=== PATIENT | male | born 1940 | race Caucasian/White ===

== ENCOUNTER → 2016-05-07 | Outpatient (CLI) | payer MEDICARE, OTHER ==
[2016-05-07 08:44] LABS: ALANINE AMINOTRANSFERASE 57 U/L (21-72); ALBUMIN 3.7 g/dL (3.5-5.0); ALKALINE PHOSPHATASE 150 U/L (38-126); ANION GAP 12 (5-19); ASPARTATE AMINO TRANSFERASE 77 U/L (17-59); BILIRUBIN,TOTAL 0.7 mg/dL (0.2-1.3); BLOOD UREA NITROGEN 13 mg/dL (7-20); CALCIUM 8.8 mg/dL (8.4-10.2); CARBON DIOXIDE 27 mmol/L (22-30); CHLORIDE 97 mmol/L (98-107); CHOLESTEROL 140.35 mg/dL (0-200); CREATININE RESULT 1.15 mg/dL (0.52-1.25); Direct HDL 72 mg/dL (>40); GLUCOSE 98 mg/dL (75-110); POTASSIUM 4.1 mmol/L (3.6-5.0); SODIUM 136.4 mmol/L (137-145); TOTAL PROTEIN 7.5 g/dL (6.3-8.2); TRIGLYCERIDES 111 mg/dL (<150)
[2016-05-07 08:55] LABS: DIRECT LDL 42 mg/dL (<100)
== END ==
LOC: LAB 08:03
PROVIDERS: ATTEND Internal Medicine
DX: E78.4 Other hyperlipidemia (principal); I12.9 Hypertensive chronic kidney disease with stage 1 through stage 4 chronic kidney disease, or unspecified chronic kidney disease; N18.9 Chronic kidney disease, unspecified; I34.0 Nonrheumatic mitral (valve) insufficiency; J44.9 Chronic obstructive pulmonary disease, unspecified; R09.89 Other specified symptoms and signs involving the circulatory and respiratory systems; R01.1 Cardiac murmur, unspecified; Z79.899 Other long term (current) drug therapy
CPT/HCPCS: 36415; 80053; 80061

== ENCOUNTER → 2016-05-28 | Outpatient (CLI) | payer MEDICARE, OTHER | LOC: RAD 07:10 | PROVIDERS: ATTEND Nurse Practitioner Adult Health | DX: R06.00 Dyspnea, unspecified (principal) | CPT/HCPCS: 71250 ==

== ENCOUNTER → 2016-07-15 | Outpatient (CLI) | payer MEDICARE, OTHER | LOC: RAD 15:42 | PROVIDERS: ATTEND Nurse Practitioner Adult Health | DX: R91.1 Solitary pulmonary nodule (principal) | CPT/HCPCS: 78814; A9552 ==

== ENCOUNTER → 2016-07-19 | Outpatient (CLI) | payer MEDICARE, OTHER | LOC: WI 10:31 | PROVIDERS: ATTEND Physician Assistant | DX: Z87.310 Personal history of (healed) osteoporosis fracture (principal) | CPT/HCPCS: 77080 ==

== ENCOUNTER → 2016-08-06 | Outpatient (CLI) | payer MEDICARE, OTHER ==
[2016-08-06 08:19] LABS: ALANINE AMINOTRANSFERASE 34 U/L (21-72); ALBUMIN 4.6 g/dL (3.5-5.0); ALKALINE PHOSPHATASE 86 U/L (38-126); ANION GAP 15 (5-19); ASPARTATE AMINO TRANSFERASE 44 U/L (17-59); BILIRUBIN,DIRECT 0.4 mg/dL (0.0-0.4); BILIRUBIN,TOTAL 0.8 mg/dL (0.2-1.3); BLOOD UREA NITROGEN 14 mg/dL (7-20); CALCIUM 9.4 mg/dL (8.4-10.2); CARBON DIOXIDE 24 mmol/L (22-30); CHLORIDE 105 mmol/L (98-107); CHOLESTEROL 172.41 mg/dL (0-200); CREATININE RESULT 1.26 mg/dL (0.52-1.25); Direct HDL 107 mg/dL (>40); GLUCOSE 115 mg/dL (75-110); SODIUM 143.7 mmol/L (137-145); TOTAL PROTEIN 7.9 g/dL (6.3-8.2); TRIGLYCERIDES 51 mg/dL (<150)
[2016-08-06 08:31] LABS: DIRECT LDL 52 mg/dL (<100)
== END ==
LOC: LAB 07:36
PROVIDERS: ATTEND Internal Medicine
DX: E78.4 Other hyperlipidemia (principal); I12.9 Hypertensive chronic kidney disease with stage 1 through stage 4 chronic kidney disease, or unspecified chronic kidney disease; N18.9 Chronic kidney disease, unspecified; Z79.899 Other long term (current) drug therapy; I34.0 Nonrheumatic mitral (valve) insufficiency; J44.9 Chronic obstructive pulmonary disease, unspecified; R01.1 Cardiac murmur, unspecified; R09.89 Other specified symptoms and signs involving the circulatory and respiratory systems
CPT/HCPCS: 36415; 80053; 80061

== ENCOUNTER → 2016-10-16 | Outpatient (CLI) | payer MEDICARE, OTHER ==
[2016-10-16 11:04] LABS: ALANINE AMINOTRANSFERASE 36 U/L (21-72); ALBUMIN 4.5 g/dL (3.5-5.0); ALKALINE PHOSPHATASE 92 U/L (38-126); ANION GAP 13 (5-19); ASPARTATE AMINO TRANSFERASE 35 U/L (17-59); BILIRUBIN,DIRECT 0.4 mg/dL (0.0-0.4); BILIRUBIN,TOTAL 0.7 mg/dL (0.2-1.3); BLOOD UREA NITROGEN 13 mg/dL (7-20); CALCIUM 9.1 mg/dL (8.4-10.2); CARBON DIOXIDE 24 mmol/L (22-30); CHLORIDE 106 mmol/L (98-107); CHOLESTEROL 168.06 mg/dL (0-200); CREATININE RESULT 1.01 mg/dL (0.52-1.25); GLUCOSE 113 mg/dL (75-110); POTASSIUM 3.7 mmol/L (3.6-5.0); SODIUM 143.2 mmol/L (137-145); TOTAL PROTEIN 7.8 g/dL (6.3-8.2); TRIGLYCERIDES 42 mg/dL (<150)
[2016-10-16 11:15] LABS: Direct HDL 115 mg/dL (>40)
[2016-10-16 11:18] LABS: DIRECT LDL 44 mg/dL (<100)
== END ==
LOC: LAB 10:21
PROVIDERS: ATTEND Internal Medicine
DX: E78.4 Other hyperlipidemia (principal); I34.0 Nonrheumatic mitral (valve) insufficiency; I12.9 Hypertensive chronic kidney disease with stage 1 through stage 4 chronic kidney disease, or unspecified chronic kidney disease; N18.9 Chronic kidney disease, unspecified; J44.9 Chronic obstructive pulmonary disease, unspecified; R01.1 Cardiac murmur, unspecified; R09.89 Other specified symptoms and signs involving the circulatory and respiratory systems; Z79.899 Other long term (current) drug therapy
CPT/HCPCS: 36415; 80053; 80061

== ENCOUNTER → 2016-12-14 | Outpatient (CLI) | payer MEDICARE, OTHER ==
[2016-12-14 07:58] LABS: APPEARANCE,URINE CLEAR; BILIRUBIN,URINE NEGATIVE (NEGATIVE); GLUCOSE, URINE NEGATIVE (NEGATIVE); KETONES,URINE NEGATIVE (NEGATIVE); LEUKOCYTE ESTERASE,URINE NEGATIVE (NEGATIVE); NITRITE,URINE NEGATIVE (NEGATIVE); PROTEIN,URINE NEGATIVE (NEGATIVE); URINE SPECIFIC GRAVITY 1.004; UROBILINOGEN,URINE NEGATIVE mg/dL (<2.0)
[2016-12-14 08:17] LABS: ABSOLUTE BASOPHILS # (AUTO) 0.1 10^3/uL (0.0-0.2); ABSOLUTE LYMPHOCYTES (AUTO) 1.4 10^3/uL (0.5-4.7); ABSOLUTE MONOCYTES (AUTO) 0.4 10^3/uL (0.1-1.4); ABSOLUTE NEUT (AUTO) 3.6 10^3/uL (1.7-8.2); HEMATOCRIT 38.9 % (37.9-51.0); HEMOGLOBIN 13.5 g/dL (13.5-17.0); HGB HCT DIFFERENCE 1.6; LYMPHOCYTES % (AUTO) 25.7 % (13-45); MEAN CORPUSCULAR HEMOGLOBIN 33.1 pg (27.0-33.4); MEAN CORPUSCULAR HGB CONC 34.8 g/dL (32.0-36.0); MEAN CORPUSCULAR VOLUME 95 fl (80-97); MONOCYTES % (AUTO) 6.8 % (3-13); RED BLOOD COUNT 4.09 10^6/uL (4.35-5.55); RED CELL DISTRIBUTION WIDTH 14.2 % (11.5-14.0); SEGMENTED NEUTROPHILS % (AUTO) 65.5 % (42-78); WHITE BLOOD COUNT 5.5 10^3/uL (4.0-10.5)
[2016-12-14 08:20] LABS: ANION GAP 13 (5-19); BLOOD UREA NITROGEN 12 mg/dL (7-20); CALCIUM 9.3 mg/dL (8.4-10.2); CARBON DIOXIDE 25 mmol/L (22-30); CHLORIDE 103 mmol/L (98-107); CREATININE RESULT 0.96 mg/dL (0.52-1.25); GLUCOSE 124 mg/dL (75-110); POTASSIUM 3.4 mmol/L (3.6-5.0); SODIUM 141.1 mmol/L (137-145)
== END ==
LOC: LAB 07:42
PROVIDERS: ATTEND Internal Medicine Nephrology
DX: N18.2 Chronic kidney disease, stage 2 (mild) (principal); R80.9 Proteinuria, unspecified; I12.9 Hypertensive chronic kidney disease with stage 1 through stage 4 chronic kidney disease, or unspecified chronic kidney disease; M10.00 Idiopathic gout, unspecified site
CPT/HCPCS: 36415; 80048; 81001; 85025

== ENCOUNTER → 2016-12-19 | Outpatient (CLI) | payer MEDICARE, OTHER ==
[2016-12-19 11:27] LABS: ABSOLUTE BASOPHILS # (AUTO) 0.1 10^3/uL (0.0-0.2); ABSOLUTE LYMPHOCYTES (AUTO) 1.5 10^3/uL (0.5-4.7); ABSOLUTE MONOCYTES (AUTO) 0.3 10^3/uL (0.1-1.4); BASOPHILS % (AUTO) 2.1 % (0-2); EOSINOPHILS % (AUTO) 0.4 % (0-6); HEMATOCRIT 40.4 % (37.9-51.0); HEMOGLOBIN 13.7 g/dL (13.5-17.0); HGB HCT DIFFERENCE 0.7; LYMPHOCYTES % (AUTO) 30.9 % (13-45); MEAN CORPUSCULAR HEMOGLOBIN 32.9 pg (27.0-33.4); MEAN CORPUSCULAR VOLUME 97 fl (80-97); MONOCYTES % (AUTO) 6.4 % (3-13); RED BLOOD COUNT 4.17 10^6/uL (4.35-5.55); RED CELL DISTRIBUTION WIDTH 13.9 % (11.5-14.0); SEGMENTED NEUTROPHILS % (AUTO) 60.2 % (42-78); WHITE BLOOD COUNT 4.9 10^3/uL (4.0-10.5)
[2016-12-19 11:50] LABS: ALANINE AMINOTRANSFERASE 47 U/L (21-72); ALBUMIN 4.6 g/dL (3.5-5.0); ALKALINE PHOSPHATASE 94 U/L (38-126); AMYLASE 116 U/L (30-110); ANION GAP 14 (5-19); ASPARTATE AMINO TRANSFERASE 51 U/L (17-59); BILIRUBIN,DIRECT 0.4 mg/dL (0.0-0.4); BILIRUBIN,TOTAL 0.8 mg/dL (0.2-1.3); BLOOD UREA NITROGEN 12 mg/dL (7-20); CALCIUM 9.4 mg/dL (8.4-10.2); CARBON DIOXIDE 28 mmol/L (22-30); CHLORIDE 104 mmol/L (98-107); CREATININE RESULT 1.01 mg/dL (0.52-1.25); GLUCOSE 101 mg/dL (75-110); LIPASE 76.8 U/L (23-300); POTASSIUM 3.8 mmol/L (3.6-5.0); SODIUM 145.5 mmol/L (137-145); TOTAL PROTEIN 7.5 g/dL (6.3-8.2)
== END ==
LOC: LAB 11:06
PROVIDERS: ATTEND Specialist
DX: R10.9 Unspecified abdominal pain (principal); D50.9 Iron deficiency anemia, unspecified; K76.0 Fatty (change of) liver, not elsewhere classified
CPT/HCPCS: 36415; 80053; 82150; 83690; 85025

== ENCOUNTER → 2017-05-06 | Outpatient (CLI) | payer MEDICARE, OTHER ==
[2017-05-06 09:02] LABS: ALANINE AMINOTRANSFERASE 42 U/L (21-72); ALBUMIN 4.6 g/dL (3.5-5.0); ALKALINE PHOSPHATASE 82 U/L (38-126); ANION GAP 10 (5-19); ASPARTATE AMINO TRANSFERASE 59 U/L (17-59); BILIRUBIN,DIRECT 0.4 mg/dL (0.0-0.4); BILIRUBIN,TOTAL 0.5 mg/dL (0.2-1.3); BLOOD UREA NITROGEN 14 mg/dL (7-20); CALCIUM 9.6 mg/dL (8.4-10.2); CARBON DIOXIDE 28 mmol/L (22-30); CHLORIDE 105 mmol/L (98-107); GLUCOSE 105 mg/dL (75-110); POTASSIUM 4.5 mmol/L (3.6-5.0); TOTAL PROTEIN 7.5 g/dL (6.3-8.2); TRIGLYCERIDES 37 mg/dL (<150)
[2017-05-06 09:13] LABS: DIRECT LDL 35 mg/dL (<100)
== END ==
LOC: LAB 08:24
PROVIDERS: ATTEND Internal Medicine
DX: E78.4 Other hyperlipidemia (principal); I12.9 Hypertensive chronic kidney disease with stage 1 through stage 4 chronic kidney disease, or unspecified chronic kidney disease; N18.9 Chronic kidney disease, unspecified; R01.1 Cardiac murmur, unspecified; R09.89 Other specified symptoms and signs involving the circulatory and respiratory systems; J44.9 Chronic obstructive pulmonary disease, unspecified; I34.0 Nonrheumatic mitral (valve) insufficiency; Z79.899 Other long term (current) drug therapy
CPT/HCPCS: 36415; 80053; 80061

== ENCOUNTER 2017-05-10 07:41 | Day surgery (SDC) | payer MEDICARE, OTHER ==
--- NOTE | 2017-05-10 08:53 | Operative Report ---
Operative Report DATE OF SURGERY: 05/10/17 Operative Report: The risks benefits and alternatives of the procedure explained to the patient in detail and informed consent is obtained.A GIF Olympus video scope was inserted into the patient's mouth and hypopharynx, the esophagus is identified intubated and insufflated ,the scope was then advanced through the esophagus stomach and duodenum, retroflexion maneuver is done, the esophagus stomach and first and second portions of the duodenum examined PREOPERATIVE DIAGNOSIS: Dyspepsia POSTOPERATIVE DIAGNOSIS: Gastritis status post biopsy rule out Helicobacter pylori OPERATION: EGD with biopsy SURGEON: CLEMENTINA MIKE ANESTHESIA: Other - No sedation provided. Patient chose to do the procedure unsedated. TISSUE REMOVED OR ALTERED: Gastric mucosal specimens obtained to rule out Helicobacter pylori COMPLICATIONS: None. ESTIMATED BLOOD LOSS: None. INTRAOPERATIVE FINDINGS: As noted above. PROCEDURE: Patient tolerated the procedure well. No immediate postprocedure complications are noted. Patient discharged in good condition. Discharge date 05-10-17. Discharge diet: Regular. Discharge activity: Regular. 2-3 week follow-up to discuss findings. We will wait on pathology. Patient is instructed to call the office or proceed to the emergency room should there be any further problems or questions.
[2017-05-10 08:58] VITALS: BP 144/80
== END 2017-05-10 08:55 | disposition home or self-care (01) ==
LOC: END 07:41
PROVIDERS: ATTEND Internal Medicine Gastroenterology
PROC: 0DB68ZX Excision of Stomach, Via Natural or Artificial Opening Endoscopic, Diagnostic (ICD-10-PCS; principal; 2017-05-10 08:00)
DX: K29.50 Unspecified chronic gastritis without bleeding (principal); I10 Essential (primary) hypertension; E78.00 Pure hypercholesterolemia, unspecified; K76.0 Fatty (change of) liver, not elsewhere classified; J43.9 Emphysema, unspecified
CPT/HCPCS: 43239; 88305; 88342

== ENCOUNTER → 2017-06-21 | Outpatient (CLI) | payer MEDICARE, OTHER ==
[2017-06-21 08:02] LABS: HEMATOCRIT 39.3 % (37.9-51.0); HEMOGLOBIN 13.6 g/dL (13.5-17.0); MEAN CORPUSCULAR HEMOGLOBIN 33.3 pg (27.0-33.4); MEAN CORPUSCULAR HGB CONC 34.5 g/dL (32.0-36.0); MEAN CORPUSCULAR VOLUME 97 fl (80-97); PLATELET COUNT 234 10^3/uL (150-450); RED BLOOD COUNT 4.07 10^6/uL (4.35-5.55); RED CELL DISTRIBUTION WIDTH 14.6 % (11.5-14.0); WHITE BLOOD COUNT 4.8 10^3/uL (4.0-10.5)
[2017-06-21 08:23] LABS: ANION GAP 12 (5-19); BLOOD UREA NITROGEN 12 mg/dL (7-20); CALCIUM 9.5 mg/dL (8.4-10.2); CARBON DIOXIDE 27 mmol/L (22-30); CHLORIDE 104 mmol/L (98-107); GLUCOSE 104 mg/dL (75-110); SODIUM 142.8 mmol/L (137-145)
== END ==
LOC: LAB 07:36
PROVIDERS: ATTEND Internal Medicine Nephrology
DX: I12.9 Hypertensive chronic kidney disease with stage 1 through stage 4 chronic kidney disease, or unspecified chronic kidney disease (principal); N18.2 Chronic kidney disease, stage 2 (mild); R80.9 Proteinuria, unspecified
CPT/HCPCS: 36415; 80048; 85027

== ENCOUNTER → 2017-12-16 | Outpatient (CLI) | payer MEDICARE, OTHER ==
[2017-12-16 08:52] LABS: HEMATOCRIT 38.1 % (37.9-51.0); HEMOGLOBIN 13.4 g/dL (13.5-17.0); MEAN CORPUSCULAR HEMOGLOBIN 33.7 pg (27.0-33.4); MEAN CORPUSCULAR HGB CONC 35.2 g/dL (32.0-36.0); MEAN CORPUSCULAR VOLUME 96 fl (80-97); PLATELET COUNT 279 10^3/uL (150-450); RED BLOOD COUNT 3.98 10^6/uL (4.35-5.55); RED CELL DISTRIBUTION WIDTH 13.6 % (11.5-14.0); WHITE BLOOD COUNT 9.2 10^3/uL (4.0-10.5)
[2017-12-16 08:56] LABS: ANION GAP 15 (5-19); BLOOD UREA NITROGEN 10 mg/dL (7-20); CALCIUM 9.8 mg/dL (8.4-10.2); CARBON DIOXIDE 21 mmol/L (22-30); CHLORIDE 97 mmol/L (98-107); GLUCOSE 120 mg/dL (75-110); POTASSIUM 4.5 mmol/L (3.6-5.0); SODIUM 133.2 mmol/L (137-145)
== END ==
LOC: LAB 08:27
PROVIDERS: ATTEND Internal Medicine Nephrology
DX: I12.9 Hypertensive chronic kidney disease with stage 1 through stage 4 chronic kidney disease, or unspecified chronic kidney disease (principal); N18.2 Chronic kidney disease, stage 2 (mild); R80.9 Proteinuria, unspecified
CPT/HCPCS: 36415; 80048; 83735; 85027

== ENCOUNTER → 2018-01-20 | Outpatient (CLI) | payer MEDICARE, OTHER ==
[2018-01-20 10:03] LABS: CHOLESTEROL 161.36 mg/dL (0-200); TRIGLYCERIDES 64 mg/dL (<150)
[2018-01-20 11:19] LABS: DIRECT LDL < 30 mg/dL (<100)
== END ==
LOC: LAB 08:20
PROVIDERS: ATTEND Internal Medicine
DX: E78.49 Other hyperlipidemia (principal); I34.0 Nonrheumatic mitral (valve) insufficiency; I12.9 Hypertensive chronic kidney disease with stage 1 through stage 4 chronic kidney disease, or unspecified chronic kidney disease; N18.9 Chronic kidney disease, unspecified; Z79.899 Other long term (current) drug therapy; R01.1 Cardiac murmur, unspecified; R09.89 Other specified symptoms and signs involving the circulatory and respiratory systems
CPT/HCPCS: 36415; 80061

== ENCOUNTER 2018-01-27 09:22 | Emergency (ER) | payer MEDICARE, OTHER ==
[2018-01-27] MEDS ORDERED: DIPH/PERTUSS(ACELL)/TETANUS VAC/PF 0.5 ML SYR (>=10YO) IM ONE (09:58)
--- NOTE | 2018-01-27 10:01 | ER Document Report ---
ED Fall - General Chief Complaint: Fall Stated Complaint: FALL,LEG PAIN Time Seen by Provider: 01/27/18 09:43 TRAVEL OUTSIDE OF THE [place] IN LAST 30 DAYS: No - HPI Notes: Patient is a 77-year-old male that presents to the emergency department for chief complaint of head injury. Patient states just prior to arrival in the emergency room he was walking up a ramp and fell backwards. He did hit his head but denies any loss of consciousness. Patient states initially he had a headache but that is now resolved. He denies any vision changes numbness or weakness. He does take a baby aspirin daily but denies any other anticoagulation. He denies any pain in his hips or lower extremities. He denies other injury with the fall. He denies any neck pain. Past Medical History: COPD, hypertension, hyperlipidemia, peptic ulcer disease, hepatitis B Past Surgical History: reviewed in chart Social History: Daily tobacco. Denies alcohol and drug use Family History: Reviewed and noncontributory for presenting illness Allergies: Reviewed, see documented allergy list. REVIEW OF SYSTEMS: CONSTITUTIONAL : No fever No chills No diaphoresis No recent illness EENT: No vision changes No congestion No sore throat CARDIOVASCULAR: No chest pain No palpitations RESPIRATORY: No shortness of breath No cough No difficulty breathing GASTROINTESTINAL: No abdominal pain No nausea No vomiting No diarrhea GENITOURINARY: No dysuria No hematuria No difficulty urinating MUSCULOSKELETAL: No back pain No leg pain No arm pain SKIN: No rashes Scalp laceration LYMPHATIC: No swollen, enlarged glands. NEUROLOGICAL: No lightheadedness headache No weakness No paresthesias PSYCHIATRIC: No anxiety No depression PHYSICAL EXAMINATION: Vital signs reviewed, nursing noted reviewed. GENERAL: Well-appearing, well-nourished and in no acute distress. HEAD: Occipital ecchymosis and abrasion. EYES: Eyes appear normal, extraocular movements intact, sclera anicteric, conjunctiva are normal. ENT: nares patent, oropharynx clear without exudates. Moist mucous membranes. Facial bone tenderness or laxity NECK: Normal range of motion, supple without lymphadenopathy midline spinal tenderness LUNGS: Breath sounds clear to auscultation bilaterally and equal. No wheezes rales or rhonchi. HEART: Regular rate and rhythm without murmurs ABDOMEN: Soft, nontender, normoactive bowel sounds. No rebound, guarding, or rigidity. No masses appreciated. EXTREMITIES: Nontender, good range of motion, no pitting or edema. NEUROLOGICAL: No focal neurological deficits. Moves all extremities spontaneously Motor and sensory grossly intact on exam. PSYCH: Normal mood, normal affect. SKIN: Warm, Dry, normal turgor, occipital abrasion and ecchymosis with no active bleeding - Related data Allergies/Adverse Reactions: No Known Allergies Allergy (Verified 05/10/17 07:26) Past Medical History - Social History Smoking Status: Current Every Day Smoker Family History: Hypertension Patient has suicidal ideation: No Patient has homicidal ideation: No - Past Medical History Cardiac Medical History: Reports: Hx Congestive Heart Failure, Hx Coronary Artery Disease, Hx Hypercholesterolemia, Hx Hypertension Denies: Hx Heart Attack Pulmonary Medical History: Reports: Hx Asthma, Hx COPD Denies: Hx Bronchitis, Hx Pneumonia, Hx Tuberculosis Neurological Medical History: Denies: Hx Cerebrovascular Accident, Hx Seizures Renal/ Medical History: Reports: Hx Renal Insufficiency. Denies: Hx Peritoneal Dialysis GI Medical History: Reports: Hx Ulcer - perforated ulcer when he was 24. Denies : Hx Hepatitis, Hx Hiatal Hernia Musculoskeletal Medical History: Reports Hx Arthritis Psychiatric Medical History: Denies: Hx Depression Infectious Medical History: Denies: Hx Hepatitis Past Surgical History: Reports: Hx Bowel Surgery, Hx Orthopedic Surgery - shoulder. Denies: Hx Open Heart Surgery, Hx Pacemaker - Immunizations Hx Diphtheria, Pertussis, Tetanus Vaccination: Yes Hx Pneumococcal Vaccination: 04/08/14 Review of Systems - Review of Systems Notes: Dictated Physical Exam - Vital signs Vitals: Temp Pulse Resp BP Pulse Ox 97.6 F 88 18 125/71 100 01/27/18 09:43 01/27/18 09:43 01/27/18 09:43 01/27/18 09:43 01/27/18 09:43 - Notes Notes: Dictated Course - Re-evaluation Re-evalutation: 01/27/18 10:01 Vitals reviewed. Nursing notes reviewed. Patient's tetanus vaccine was updated. 01/27/18 10:58 CT brain and cervical spine show no acute injury. Patient is still not wanting pain medication. He was counseled on closed head injury and precautions to return to the emergency room. He was stable at discharge. - Vital Signs Vital signs: Temp Pulse Resp BP Pulse Ox 97.6 F 88 18 125/71 100 01/27/18 09:43 01/27/18 09:43 01/27/18 09:43 01/27/18 09:43 01/27/18 09:43 Discharge - Discharge Clinical Impression: Abrasion of scalp, initial encounter Closed head injury Qualifiers: Encounter type: initial encounter Qualified Code(s): S09.90XA - Unspecified injury of head, initial encounter Condition: Stable Disposition: HOME, SELF-CARE Instructions: Head Injury Precautions ([facility]) Additional Instructions: Please return to the emergency department if you have any worsening, or concern of your symptoms. Please return to the emergency department if you develop chest pain, difficulty breathing, severe abdominal pain, or ongoing vomiting. Please follow-up with your primary care physician in 2-3 days and any other recommended physicians. If prescribed, take all medications as directed. If you have any questions or concerns do not hesitate to return the emergency department for evaluation. [] Referrals: Noam MURRY MD [Primary Care Provider] - Follow up in 1 week
--- NOTE | 2018-01-27 10:51 | RADIOLOGY REPORT (SQ) ---
EXAM DESCRIPTION: CT HEAD WITHOUT COMPLETED DATE/TIME: 01/27/2018 10:41 am REASON FOR STUDY: trauma COMPARISON: None. TECHNIQUE: Axial images acquired through the brain without intravenous contrast. Images reviewed wi th bone, brain and subdural windows. Additional sagittal and coronal reconstructions were generated. Images stored on PACS. All CT scanners at this facility use dose modulation, iterative reconstruction, and/or weight based d osing when appropriate to reduce radiation dose to as low as reasonably achievable (ALARA). [facility]: Dose Right [facility]: CareDose [facility]: Dose Right [facility]: Teradose 4D [facility]: [employer] RADIATION DOSE: CT Rad equipment meets quality standard of care and radiation dose reduction techniq ues were employed. CTDIvol: 53.2 mGy. DLP: 991 mGy-cm.mGy. LIMITATIONS: None. FINDINGS: VENTRICLES: Prominent. CEREBRUM: No masses. No hemorrhage. No midline shift. Areas of low density in the white matter mos t likely due to chronic micro-vascular ischemic change. No evidence for acute infarction. CEREBELLUM: No masses. No hemorrhage. No alteration of density. No evidence for acute infarction. EXTRAAXIAL SPACES: Age-related involutional change. No fluid collections. No masses. ORBITS AND GLOBE: No intra- or extraconal masses. Normal contour of globe without masses. CALVARIUM: No fracture. PARANASAL SINUSES: No fluid or mucosal thickening. SOFT TISSUES: No mass or hematoma. OTHER: No other significant finding. IMPRESSION: CHRONIC CHANGES OF ATROPHY AND MICROVASCULAR ISCHEMIA. NO ACUTE PROCESS. EVIDENCE OF ACUTE STROKE: NO. TECHNICAL DOCUMENTATION: JOB ID: [id number] Quality ID # [id number]: Final reports with documentation of one or more dose reduction techniques (e.g., Au tomated exposure control, adjustment of the mA and/or kV according to patient size, use of iterative reconstruction technique) 2010 [employer]- All Rights Reserved Reading location - IP/workstation name: [email or web address]
--- NOTE | 2018-01-27 10:56 | RADIOLOGY REPORT (SQ) ---
EXAM DESCRIPTION: CT CERVICAL SPINE WITHOUT COMPLETED DATE/TIME: 01/27/2018 10:41 am REASON FOR STUDY: trauma COMPARISON: 02/14/2012 TECHNIQUE: Axial images acquired through the cervical spine without intravenous contrast. Images re viewed with lung, soft tissue and bone windows. Reconstructed coronal and sagittal MPR images review ed. Images stored on PACS. All CT scanners at this facility use dose modulation, iterative reconstruction, and/or weight based d osing when appropriate to reduce radiation dose to as low as reasonably achievable (ALARA). [facility]: Dose Right [facility]: CareDose [facility]: Dose Right [facility]: Teradose 4D [facility]: [employer] RADIATION DOSE: CT Rad equipment meets quality standard of care and radiation dose reduction techniq ues were employed. CTDIvol: 16.9 mGy. DLP: 351 mGy-cm. mGy. LIMITATIONS: None. FINDINGS: ALIGNMENT: Anatomic. MINERALIZATION: Normal. VERTEBRAL BODIES: No fractures or dislocation. DISCS: Multilevel disc space narrowing with osteophytes. FACETS, LATERAL MASSES, POSTERIOR ELEMENTS: Anatomic variant incomplete right C5 superior facet. HARDWARE: None in the spine. VISUALIZED RIBS: No fractures. LUNG APICES AND SOFT TISSUES: No significant or acute findings. OTHER: No other significant finding. IMPRESSION: CHRONIC DEGENERATIVE CHANGES. NO ACUTE FINDINGS. TECHNICAL DOCUMENTATION: JOB ID: [id number] Quality ID # [id number]: Final reports with documentation of one or more dose reduction techniques (e.g., Au tomated exposure control, adjustment of the mA and/or kV according to patient size, use of iterative reconstruction technique) 2010 [employer]- All Rights Reserved Reading location - IP/workstation name: [email or web address]
[2018-01-27 11:32] VITALS: BP 123/70
== END 2018-01-27 11:19 | disposition home or self-care (01) ==
LOC: ER 09:22
DX: S00.01XA Abrasion of scalp, initial encounter (principal); S09.90XA Unspecified injury of head, initial encounter; W01.0XXA Fall on same level from slipping, tripping and stumbling without subsequent striking against object, initial encounter; Z23 Encounter for immunization; J44.9 Chronic obstructive pulmonary disease, unspecified; E78.2 Mixed hyperlipidemia; F17.200 Nicotine dependence, unspecified, uncomplicated; I50.9 Heart failure, unspecified; I11.0 Hypertensive heart disease with heart failure
CPT/HCPCS: 99284; 90471; 70450; 72125; 90715; L0120

== ENCOUNTER 2018-01-30 21:02 | Inpatient (IN) | payer MEDICARE, OTHER ==
[2018-01-30 22:14] LABS: ABSOLUTE LYMPHOCYTES (AUTO) 0.7 10^3/uL (0.5-4.7); ABSOLUTE MONOCYTES (AUTO) 0.9 10^3/uL (0.1-1.4); ABSOLUTE NEUT (AUTO) 10.3 10^3/uL (1.7-8.2); BASOPHILS % (AUTO) 0.1 % (0-2); HEMATOCRIT 41.9 % (37.9-51.0); HEMOGLOBIN 14.5 g/dL (13.5-17.0); LYMPHOCYTES % (AUTO) 5.7 % (13-45); MEAN CORPUSCULAR HEMOGLOBIN 34.4 pg (27.0-33.4); MEAN CORPUSCULAR HGB CONC 34.7 g/dL (32.0-36.0); MEAN CORPUSCULAR VOLUME 99 fl (80-97); MONOCYTES % (AUTO) 7.3 % (3-13); PLATELET COUNT 336 10^3/uL (150-450); RED BLOOD COUNT 4.23 10^6/uL (4.35-5.55); RED CELL DISTRIBUTION WIDTH 13.8 % (11.5-14.0); SEGMENTED NEUTROPHILS % (AUTO) 86.9 % (42-78); TOTAL CELLS COUNTED % (AUTO) 100 %; WHITE BLOOD COUNT 11.9 10^3/uL (4.0-10.5)
[2018-01-30 22:17] LABS: ALANINE AMINOTRANSFERASE 907 U/L (21-72); ALBUMIN 4.5 g/dL (3.5-5.0); ALKALINE PHOSPHATASE 158 U/L (38-126); ANION GAP 18 (5-19); BILIRUBIN,DIRECT 1.5 mg/dL (0.0-0.4); BILIRUBIN,TOTAL 2.6 mg/dL (0.2-1.3); BLOOD UREA NITROGEN 57 mg/dL (7-20); CALCIUM 9.6 mg/dL (8.4-10.2); CARBON DIOXIDE 30 mmol/L (22-30); CHLORIDE 87 mmol/L (98-107); CREATINE KINASE 222 U/L (55-170); GLUCOSE 133 mg/dL (75-110); POTASSIUM 3.9 mmol/L (3.6-5.0); SODIUM 135.4 mmol/L (137-145); TOTAL PROTEIN 7.8 g/dL (6.3-8.2)
[2018-01-30 22:29] LABS: ASPARTATE AMINO TRANSFERASE 1275 U/L (17-59)
--- NOTE | 2018-01-30 22:45 | RADIOLOGY REPORT (SQ) ---
EXAM DESCRIPTION: XR CHEST 1 VIEW COMPLETED DATE/TME: 01/30/2018 22:01 CLINICAL HISTORY: 77 years, Male, sob, cough COMPARISON: None. EXAM DESCRIPTION: CLINICAL HISTORY: sob, cough COMPARISON: None. FINDINGS: Two views of the chest are submitted. Cardiac silhouette appears normal. No focal parenchymal or pleural disease. No acute bony abnormality. There is no significant pulmonary vascular engorgement. IMPRESSION: No evidence of acute cardiopulmonary disease. NUMBER OF VIEWS: TECHNIQUE: LIMITATIONS: None. FINDINGS: IMPRESSION: 2010 [facility] [employer]- All Rights Reserved
[2018-01-30] MEDS ORDERED: NORMAL SALINE 1000 ML 1,000 ML IV ONE (22:53)
--- NOTE | 2018-01-30 22:55 | ER Document Report ---
ED General - General Chief Complaint: General Weakness Stated Complaint: GENERAL WEAKNESS Time Seen by Provider: 01/30/18 21:15 Cannot obtain history due to: Other - Very poor historian Notes: Patient is a 77-year-old male with a past medical history of hypertension, hyperlipidemia, chronic pain, COPD with current tobacco abuse who presents after having multiple falls. The patient is a very difficult historian, repeatedly tries to minimize symptoms and seems quite hesitant to provide details of his history. He does however state that he has had 2 episodes today in which he "lost his balance". He is unable or unwilling to tell me more about the details of what exactly happened other than that he ended up on the floor and did not hit his head. He states that his family convinced him to come to the hospital today. He was seen in the hospital several days ago for a fall at that time as well and had normal CT of the head and cervical spine. He states that he has at least a 2-year history of frequent falls but that his falls and weakness have become much more prominent in the past 3-4 days. He has not seen his primary doctor regarding these concerns. He denies any current chest pain, shortness of breath, focal weakness or numbness. Nothing improves or worsens his symptoms. TRAVEL OUTSIDE OF THE [place] IN LAST 30 DAYS: No - Related Data Allergies/Adverse Reactions: No Known Allergies Allergy (Verified 05/10/17 07:26) Past Medical History - General Information source: Patient - Social History Smoking Status: Current Every Day Smoker Frequency of alcohol use: None Drug Abuse: None Lives with: Family Family History: Hypertension - Past Medical History Cardiac Medical History: Reports: Hx Congestive Heart Failure, Hx Coronary Artery Disease, Hx Hypercholesterolemia, Hx Hypertension Denies: Hx Heart Attack Pulmonary Medical History: Reports: Hx Asthma, Hx COPD Denies: Hx Bronchitis, Hx Pneumonia, Hx Tuberculosis Neurological Medical History: Denies: Hx Cerebrovascular Accident, Hx Seizures Renal/ Medical History: Reports: Hx Renal Insufficiency. Denies: Hx Peritoneal Dialysis GI Medical History: Reports: Hx Ulcer - perforated ulcer when he was 24. Denies : Hx Hepatitis, Hx Hiatal Hernia Musculoskeletal Medical History: Reports Hx Arthritis Psychiatric Medical History: Denies: Hx Depression Infectious Medical History: Denies: Hx Hepatitis Past Surgical History: Reports: Hx Bowel Surgery, Hx Orthopedic Surgery - shoulder. Denies: Hx Open Heart Surgery, Hx Pacemaker - Immunizations Hx Diphtheria, Pertussis, Tetanus Vaccination: Yes Hx Pneumococcal Vaccination: 04/08/14 Review of Systems - Review of Systems Notes: Constitutional: Negative for fever. HENT: Negative for sore throat. Eyes: Negative for visual changes. Cardiovascular: Negative for chest pain. Respiratory: Negative for shortness of breath. Gastrointestinal: Negative for abdominal pain, vomiting or diarrhea. Genitourinary: Negative for dysuria. Musculoskeletal: Negative for back pain. Skin: Negative for rash. Neurological: Negative for headaches, weakness or numbness. Positive for frequent falls 10 point ROS negative except as marked above and in HPI. Physical Exam - Vital signs Vitals: Temp Resp Pulse Ox 97.6 F 19 92 01/30/18 21:09 01/30/18 21:09 01/30/18 21:09 Interpretation: Tachycardic Notes: PHYSICAL EXAMINATION: GENERAL: Appears older than stated age, somewhat cachectic HEAD: Atraumatic, normocephalic. EYES: Pupils equal round and reactive to light, extraocular movements intact, sclera anicteric, conjunctiva are normal. ENT: nares patent, oropharynx clear without exudates. Moderately dry mucous membranes. NECK: Normal range of motion, supple without lymphadenopathy LUNGS: Breath sounds clear to auscultation bilaterally and equal. No wheezes rales or rhonchi. HEART: Irregular tachycardia without murmurs ABDOMEN: Soft, nontender, normoactive bowel sounds. No guarding, no rebound. No masses appreciated. EXTREMITIES: Normal range of motion, no pitting or edema. No cyanosis. NEUROLOGICAL: Face symmetric. Tongue protrudes midline. Extraocular motions intact. Pupils are 2 mm and equally reactive. Normal speech. 5 out of 5 strength in both the distal and proximal upper and lower extremities bilaterally. Sensation is grossly intact throughout. Finger to nose testing normal. Pronator drift normal. PSYCH: Normal mood, normal affect. SKIN: Warm, Dry, normal turgor, diffuse ecchymosis over the bilateral upper extremities, back, legs Course - Re-evaluation Re-evalutation: 01/30/18 22:53 Presentation of an overall cachectic, chronically ill-appearing male who is tachycardic, apparently has been hypotensive in the field, diffuse ecchymosis which she states has been ongoing for several years. He minimizes his symptoms recurrently, continues to state that he is just tripping and falling but this is not consistent with his clinical history of presentation. It sounds that the patient is likely having recurrent near syncopal episodes. He did sustain head trauma several days ago but did not hit his head again today. Patient's neurologic exam is without any focal neurologic deficits, and normal cerebellar testing. Gait deferred at this point given the recurrent nature of his falls. He is noted to be tachycardic with a sinus arrhythmia. Patient's laboratories are notable for an elevated troponin of 0.091 although patient denies any chest pain or anginal equivalents. His LFTs are grossly abnormal, his renal function is likewise extremely poor and was within acceptable limits within the past 6 weeks. I am concerned of the possibility of metastatic malignancy particularly given that the patient is an active smoker, has had an 8 pound weight loss in the past [address] of the chest abdomen pelvis without contrast due to his renal function to further assess. 01/31/18 03:16 CT scan of the chest abdomen pelvis does reveal a right sided lung mass worrisome for possible malignancy. No masses noted in the abdomen. No obvious source of his LFT derangements based on CT imaging. I have discussed with the hospitalist Dr. Odonnell who has accepted the patient for admission. - Vital Signs Vital signs: Temp Pulse Resp BP Pulse Ox 97.5 F 16 142/98 H 100 01/31/18 02:33 01/31/18 02:33 01/31/18 02:33 01/31/18 02:33 - Laboratory Result Diagrams: 01/30/18 21:19 01/30/18 21:19 Laboratory results interpreted by me: 01/30/18 01/30/18 01/30/18 21:19 21:19 21:19 WBC 11.9 H RBC 4.23 L MCV 99 H MCH 34.4 H Seg Neutrophils % 86.9 H Lymphocytes % 5.7 L Absolute Neutrophils 10.3 H Sodium 135.4 L Chloride 87 L BUN 57 H Creatinine 2.85 H Est GFR ( Amer) 26 L Est GFR (Non-Af Amer) 22 L Glucose 133 H Phosphorus 4.8 H Total Bilirubin 2.6 H Direct Bilirubin 1.5 H AST 1275 H ALT 907 H Alkaline Phosphatase 158 H Creatine Kinase 222 H Lipase 367.5 H Acetaminophen < 10 L - Diagnostic Test Radiology reviewed: Reports reviewed Discharge - Discharge Clinical Impression: Acute kidney injury, Acute hepatitis, Frequent falls, Lung nodule Failure to thrive Qualifiers: Failure to thrive age range: in adult Qualified Code(s): R62.7 - Adult failure to thrive Condition: Fair Disposition: ADMITTED INPATIENT Admitting Provider: Hospitalist Unit Admitted: [facility]
--- NOTE | 2018-01-30 23:53 | RADIOLOGY REPORT (SQ) ---
CT CHEST, ABDOMEN, AND PELVIS HISTORY: Weight loss. Abnormal liver function tests. Evaluate for malignancy. COMPARISON: None. TECHNIQUE: CT scan of the chest, abdomen, and pelvis without contrast. This exam was performed according to our departmental dose-optimization program, which includes automated exposure control, adjustment of the mA and/or kV according to patient size and/or use of iterative reconstruction technique. FINDINGS: CHEST: 7 mm calcified granuloma at the right lung base. 7 mm nodule at the right upper lobe. Small area of scarring at the lateral aspect of the right upper lobe. Diffuse emphysematous changes of the lungs. Small calcified mediastinal and right hilar lymph nodes. No consolidation, pleural effusion, or pneumothorax is identified. Age indeterminate compression fracture of T12. ABDOMEN/PELVIS: Liver, gallbladder, pancreas, and adrenal glands are unremarkable. Punctate calcification in the spleen. Punctate nonobstructing stones in both kidneys. No obstructive uropathy. No bowel obstruction. Descending thoracic aorta measures 2.9 cm and contains atherosclerotic calcifications. Degenerative changes of the spine. IMPRESSION: Limited study without IV or oral contrast. 7 mm right upper lobe nodule. Recommend follow-up as per Fleischner criteria. Punctate nonobstructing stones in both kidneys. No obstructive uropathy. Age indeterminate compression fracture of T12. Correlate for point tenderness in this region.
--- NOTE | 2018-01-30 23:54 | EKG REPORT ---
SEVERITY:- ABNORMAL ECG - SINUS ARRHYTHMIA, RATE [id number] PROBABLE LEFT ATRIAL ABNORMALITY LOW VOLTAGE IN FRONTAL LEADS : Confirmed by: Ben Sena 30-Jan-2018 23:53:29
[2018-01-31] MEDS ORDERED: MAGNESIUM HYDROXIDE SUSP 30 ML UDCUP PO PRN (00:14)
[2018-01-31] MEDS ORDERED: MAG HYDROX/AL HYDROX/SIMETH SUSP 30 ML UDCUP PO PRN (00:14)
[2018-01-31] MEDS ORDERED: IPRATROPIUM/ALBUTEROL 0.5-2.5 MG/3 ML AMPUL NEB PRN (00:14)
[2018-01-31] MEDS ORDERED: CLONIDINE HCL 0.1 MG TABLET PO ONE (00:30)
[2018-01-31 00:37] LABS: INTERNATIONAL RATION (INR) 1.01; PROTHROMBIN TIME 13.8 SEC (11.4-15.4)
[2018-01-31 00:43] LABS: LIPASE 367.5 U/L (23-300); PHOSPHORUS 4.8 mg/dL (2.5-4.5)
[2018-01-31 00:49] LABS: ACETAMINOPHEN < 10 ug/mL (10-30)
[2018-01-31] MEDS: NORMAL SALINE 1000 ML 1,000 ML IV PRN ×3 (01:28→16:32)
--- NOTE | 2018-01-31 01:28 | RADIOLOGY REPORT (SQ) ---
US RETROPERITONEUM HISTORY: Acute renal failure. COMPARISON: None. FINDINGS: The right kidney measures 9.3 cm in length, which is normal size. The cortex has normal thickness and echogenicity. Tiny echogenic foci may represent punctate stones. The left kidney measures 9.8 cm in length, which is normal size. The cortex has normal thickness and echogenicity. Tiny echogenic foci may represent punctate stones. There is normal color Doppler flow to both kidneys. IMPRESSION: Possible punctate nonobstructing stones in both kidneys. Otherwise unremarkable study.
[2018-01-31 01:50] LABS: APPEARANCE,URINE SLIGHTLY-CLOUDY; BILIRUBIN,URINE NEGATIVE (NEGATIVE); COLOR,URINE YELLOW; GLUCOSE, URINE 50 mg/dL (NEGATIVE); KETONES,URINE TRACE mg/dL (NEGATIVE); LEUKOCYTE ESTERASE,URINE NEGATIVE (NEGATIVE); NITRITE,URINE NEGATIVE (NEGATIVE); PROTEIN,URINE 30 mg/dL (NEGATIVE); URINE SPECIFIC GRAVITY 1.012
[2018-01-31 02:05] LABS: URINE AMPHETAMINES SCREEN NEGATIVE; URINE BARBITURATES SCREEN NEGATIVE; URINE BENZODIAZEPINES SCREEN NEGATIVE; URINE COCAINE SCREEN NEGATIVE; URINE MARIJUANA (THC) SCREEN NEGATIVE; URINE METHADONE SCREEN NEGATIVE; URINE PHENCYCLIDINE SCREEN NEGATIVE
[2018-01-31 03:49] LABS: TROPONIN I 0.068 ng/mL
[2018-01-31 03:50] LABS: CREATINE KINASE MB 4.33 ng/mL (<4.55)
[2018-01-31] MEDS: CLONIDINE HCL 0.1 MG TABLET PO SCH ×3 (05:31→21:54)
[2018-01-31] MEDS: HEPARIN SOD (PORCINE) 5,000 UNIT/ML 1 ML SYRINGE SUBCUT SCH ×3 (05:31→21:57)
--- NOTE | 2018-01-31 06:05 | PDOC H&P ---
History of Present Illness Admission Date/PCP: 01/31/18 00:24 Noam MURRY MD Patient complains of: Generalized weakness. History of Present Illness: SOPHIE PEREZ is a 77 year old male with a past medical history of hypertension , chronic kidney disease, recurrent falls with rhabdomyolysis, COPD and tobacco dependence. Patient presents with complaints of fall to the floor after the loss of balance with increasing frequency over the last 2 weeks. Patient is a very vague historian and cannot recall the symptoms before or after his fall. He denies change in medications, urinary frequency, dizziness, palpitations, chest pain, headache nausea or vomiting. He does seem hesitant versus confused about these events, denying abuse or feeling unsafe at home alone. In the emergency room he is found to have widespread ecchymosis to the back, arms with skin tears of the scalp and forearms bilaterally. Labs are concerning for acute renal failure, acute liver injury and profound dehydration. He started on IV fluid and referred to the hospitalist for admission. Past Medical History Cardiac Medical History: Reports: Congestive Heart Failure, Coronary Artery Disease, Hyperlipidema, Hypertension Denies: Myocardial Infarction Pulmonary Medical History: Reports: Asthma, Chronic Obstructive Pulmonary Disease (COPD), Other - Right-sided lung nodule. Denies: Bronchitis, Pneumonia, Tuberculosis Neurological Medical History: Denies: Seizures GI Medical History: Denies: Hepatitis, Hiatal Hernia Musculoskeltal Medical History: Reports: Arthritis Psychiatric Medical History: Reports: Tobacco Dependency Denies: Depression, Substance Abuse Hematology: Denies: Anemia, Sickle Cell Disease Past Surgical History Past Surgical History: Reports: Orthopedic Surgery - shoulder, Other - Remote perforated peptic ulcer Denies: Pacemaker Social History Information Source: Patient, Emergency Med Personnel, [facility] Records Lives with: Alone Smoking Status: Current Every Day Smoker Cigarettes Packs Per Day: 0.5 Number of Years Smokin Last Time Smoked: yesterday Frequency of Alcohol Use: None Hx Recreational Drug Use: No Drugs: None Hx Prescription Drug Abuse: No - Advance Directive Resuscitation Status: Full Code Family History Family History: Hypertension Parental Family History Reviewed: Yes Children Family History Reviewed: Yes Sibling(s) Family History Reviewed.: Yes Medication/Allergy Home Medications: Aspirin [Aspirin EC] 81 mg PO QHS 05/10/17 Atorvastatin Calcium 20 mg PO QHS 05/10/17 Clonidine HCl 0.1 mg PO BID 05/10/17 Cyclobenzaprine HCl 10 mg PO BID 05/10/17 Folic Acid 1 mg PO QAM 05/10/17 Hydrocodone Bit/Acetaminophen [Hydrocodon-Acetaminophn 10-325] 1 each PO BID 05/26 Allergies/Adverse Reactions: No Known Allergies Allergy (Verified 05/10/17 07:26) Review of Systems ROS unobtainable: Due to mental status - Poor historian Constitutional: PRESENT: as per HPI Physical Exam Vital Signs: Temp Pulse Resp BP Pulse Ox 97.5 F 112 H 16 142/98 H 100 01/31/18 02:33 01/31/18 02:33 01/31/18 02:33 01/31/18 02:33 01/31/18 02:33 Intake & Output 01/29/18 01/30/18 01/31/18 11:59 11:59 11:59 Intake Total 1000 Balance 1000 Weight 59.2 kg General appearance: PRESENT: cooperative, disheveled, severe distress, thin Head exam: ABSENT: atraumatic Eye exam: PRESENT: conjunctiva pink, EOMI, PERRLA. ABSENT: scleral icterus Ear exam: PRESENT: normal external ear exam Mouth exam: PRESENT: moist, tongue midline Neck exam: ABSENT: carotid bruit, JVD, lymphadenopathy, thyromegaly Adult Head Front/Back Image: 1 - 3 cm x 3 cm scalp laceration Respiratory exam: PRESENT: clear to auscultation jamie, crackles, prolonged expiratory phas. ABSENT: rales, rhonchi, wheezes Cardiovascular exam: PRESENT: RRR. ABSENT: diastolic murmur, rubs, systolic murmur Pulses: PRESENT: normal dorsalis pedis pul Vascular exam: PRESENT: normal capillary refill GI/Abdominal exam: PRESENT: normal bowel sounds, soft. ABSENT: distended, guarding, mass, organolmegaly, rebound, tenderness Rectal exam: PRESENT: deferred Extremities exam: PRESENT: tenderness Neurological exam: PRESENT: alert, awake, oriented to person, oriented to place , oriented to situation, CN II-XII grossly intact Psychiatric exam: PRESENT: unusual affect Skin exam: PRESENT: abrasion, dry, erythema, skin tears, other - Widespread ecchymosis femoral neck to upper thigh. ABSENT: cyanosis, petechiae Adult Front & Back Image: 1 - Widespread ecchymosis, appearance of different stages of healing 2 - Widespread ecchymosis, skin tears 3 - Widespread ecchymosis, skin tears Results Laboratory Results: 01/31/18 01/31/18 03:15 03:15 Creatine Kinase 185 H CK-MB (CK-2) 4.33 Troponin I 0.068 Impressions: Chest X-Ray 01/30/18 22:01 IMPRESSION: No evidence of acute cardiopulmonary disease. NUMBER OF VIEWS: TECHNIQUE: LIMITATIONS: None. FINDINGS: IMPRESSION: 2010 [employer]- All Rights Reserved Abdomen/Pelvis CT 01/30/18 22:51 IMPRESSION: Limited study without IV or oral contrast. 7 mm right upper lobe nodule. Recommend follow-up as per Fleischner criteria. Punctate nonobstructing stones in both kidneys. No obstructive uropathy. Age indeterminate compression fracture of T12. Correlate for point tenderness in this region. Chest CT 01/30/18 22:51 IMPRESSION: Limited study without IV or oral contrast. 7 mm right upper lobe nodule. Recommend follow-up as per Fleischner criteria. Punctate nonobstructing stones in both kidneys. No obstructive uropathy. Age indeterminate compression fracture of T12. Correlate for point tenderness in this region. Renal Ultrasound 01/31/18 00:00 IMPRESSION: Possible punctate nonobstructing stones in both kidneys. Otherwise unremarkable study. Assessment & Plan - Diagnosis (1) Acute kidney injury Is this a current diagnosis for this admission?: Yes Plan: Patient present 2011 with similar findings found secondary to rhabdomyolysis and statin, ultimately requiring short-term dialysis. Likely multifactorial secondary to prerenal azotemia and rhabdomyolysis, IV fluid challenge. Follow- up urinalysis, total CK and nephrology consult (2) Acute hepatitis Is this a current diagnosis for this admission?: Yes Plan: Unclear cause, follow-up hepatitis profile, toxicology, LFTs and GI consult. (3) Failure to thrive Qualifiers: Failure to thrive age range: in adult Qualified Code(s): R62.7 - Adult failure to thrive Is this a current diagnosis for this admission?: Yes Plan: Unclear outpatient setting, patient appears hesitant, photo documentation of injury to the back, discharge planning and DSS referral, (4) Frequent falls Is this a current diagnosis for this admission?: Yes Plan: Likely orthostatic hypotension, follow-up orthostatic vitals, physical therapy and occupational therapy evaluation. (5) Lung nodule Is this a current diagnosis for this admission?: Yes Plan: PET scan July 2016 found borderline hypermetabolic state, recommending follow- up. Consider oncology consult. (6) COPD (chronic obstructive pulmonary disease) Is this a current diagnosis for this admission?: Yes Plan: Aggressive pulmonary toilet, flutter valve, supplemental oxygen, albuterol and Atrovent. - Time Time Spent: 50 to 70 Minutes - Inpatient Certification Medical Necessity: Need Close Monitoring Due to Risk of Patient Decompensation
[2018-01-31] MEDS: DILTIAZEM HCL 30 MG TABLET PO SCH ×3 (06:54→21:54)
[2018-01-31] MEDS: IPRATROPIUM/ALBUTEROL 0.5-2.5 MG/3 ML AMPUL NEB SCH ×2 (07:59→16:16)
[2018-01-31] MEDS ORDERED: DIAZEPAM 2 MG TABLET PO SCH (08:00)
[2018-01-31] MEDS: DOCUSATE SODIUM 100 MG CAPSULE PO SCH ×2 (09:10→17:03)
[2018-01-31] MEDS: FOLIC ACID 1 MG TABLET PO SCH (09:10)
[2018-01-31] MEDS ORDERED: NIFEDIPINE 30 MG TAB.ER.24 PO SCH (10:00)
[2018-01-31 10:29] LABS: CREATINE KINASE MB 3.51 ng/mL (<4.55); TROPONIN I 0.07 ng/mL
--- NOTE | 2018-01-31 14:07 | PDOC CONSULTATION ---
Consultation Consult Date: 01/31/18 Consult reason:: ANIA. History of Present Illness Admission Date/PCP: 01/31/18 00:24 Noam MURRY MD History of Present Illness: SOPHIE PEREZ is a 77 year old male with a past medical history of hypertension , chronic kidney disease 2 with base creatinine of 1.0, was admitted with complaints of fall to the floor after the loss of balance with increasing frequency over the last 2 weeks. As per initial history per hospitalist he seems very vague with his history. However currently he is wide awake and alert and oriented and recalls one of his falls when he was walking up a slight ramp and apparently slipped and fell back. He does not give a history of seizures, syncope, or focal deficits. He denies change in medications, urinary frequency, dizziness, palpitations, chest pain, headache nausea or vomiting. In the emergency room he is found to have widespread ecchymosis to the back, arms with skin tears of the scalp and forearms bilaterally. Labs are concerning for acute renal failure with creatinine of 3 +, acute liver injury and profound dehydration. Currently he is on IV fluids and is almost getting back to his old self. He has not been eating or drinking over the past 4 days. He lives alone and is reliant on a friend for his supplies. Past Medical History Cardiac Medical History: Reports: Coronary Artery Disease, Hyperlipidemia, Hypertension-primary Denies: Myocardial Infarction Pulmonary Medical History: Reports: Asthma, Chronic Obstructive Pulmonary Disease (COPD), Other - Right-sided lung nodule. Denies: Bronchitis, Pneumonia, Tuberculosis Neurological Medical History: Denies: Seizures Renal/ Medical History: Reports: Chronic Kidney Disease Stage II GI Medical History: Denies: Hepatitis, Hiatal Hernia Musculoskeltal Medical History: Reports: Arthritis Psychiatric Medical History: Reports: Tobacco Dependency Denies: Depression, Substance Abuse Past Surgical History Past Surgical History: Reports: Orthopedic Surgery - shoulder, Other - Remote perforated peptic ulcer Denies: Pacemaker Social History Lives with: Alone Smoking Status: Current Every Day Smoker Cigarettes Packs Per Day: 0.5 Number of Years Smokin Last Time Smoked: yesterday Frequency of Alcohol Use: None Hx Recreational Drug Use: No Drugs: None Hx Prescription Drug Abuse: No - Advance Directive Resuscitation Status: Full Code Family History Parental Family History Reviewed: Yes - Negative for CKD Children Family History Reviewed: No Sibling(s) Family History Reviewed.: No Medication/Allergy Home Medications: Aspirin [Aspirin EC] 81 mg PO QHS 05/10/17 Atorvastatin Calcium 20 mg PO QHS 05/10/17 Clonidine HCl 0.1 mg PO BID 05/10/17 Cyclobenzaprine HCl 10 mg PO BID 05/10/17 Folic Acid 1 mg PO QAM 05/10/17 Hydrocodone Bit/Acetaminophen [Hydrocodon-Acetaminophn 10-325] 1 each PO BID 05/26 Furosemide [Lasix 20 mg Tablet] 20 mg PO QAM 01/31/18 Allergies/Adverse Reactions: No Known Allergies Allergy (Verified 05/10/17 07:26) Review of Systems Constitutional: PRESENT: fatigue, headache(s), weakness, weight loss. ABSENT: anorexia, chills, fever(s), night sweats Nose, Mouth, and Throat: ABSENT: mouth pain, sore throat Cardiovascular: ABSENT: chest pain, dyspnea on exertion, edema, orthropnea, palpitations Gastrointestinal: ABSENT: abdominal pain, diarrhea, dysphagia, heartburn, hematemesis, nausea, vomiting Genitourinary: ABSENT: difficulty urinating, dysuria, hematuria Neurological: PRESENT: frequent falls, lack of coordination. ABSENT: abnormal gait, abnormal movements, abnormal speech, confusion, convulsions, focal weakness, paresthesias Hematologic/Lymphatic: ABSENT: easy bruising, lymphadenopathy Physical Exam Vital Signs: Temp Pulse Resp BP Pulse Ox 97.9 F 86 18 124/68 100 01/31/18 11:26 01/31/18 11:26 01/31/18 11:26 01/31/18 11:26 01/31/18 11:26 Intake & Output 01/30/18 01/31/18 02/01/18 06:59 06:59 06:59 Intake Total 2120 237 Output Total 1275 225 Balance 845 12 Weight 59.2 kg General appearance: PRESENT: no acute distress Eye exam: PRESENT: conjunctiva pink, EOMI, PERRLA. ABSENT: nystagmus Ear exam: PRESENT: normal external ear exam Mouth exam: PRESENT: neck supple. ABSENT: moist Neck exam: ABSENT: lymphadenopathy, meningismus, tenderness, thyromegaly, tracheal deviation Respiratory exam: PRESENT: clear to auscultation jamie. ABSENT: crackles Cardiovascular exam: PRESENT: +S1, +S2, systolic murmur GI/Abdominal exam: PRESENT: soft. ABSENT: normal bowel sounds, organomegaly, tenderness Extremities exam: ABSENT: pedal edema Neurological exam: PRESENT: alert, awake, oriented to person, oriented to place Psychiatric exam: PRESENT: appropriate affect Skin exam: PRESENT: dry, rash - ecchymosis Results Laboratory Results: 01/31/18 01/31/18 01/31/18 03:15 03:15 09:30 Creatine Kinase 185 H 154 CK-MB (CK-2) 4.33 Troponin I 0.068 01/31/18 09:30 Creatine Kinase CK-MB (CK-2) 3.51 Troponin I 0.070 Impressions: Chest X-Ray 01/30/18 22:01 IMPRESSION: No evidence of acute cardiopulmonary disease. NUMBER OF VIEWS: TECHNIQUE: LIMITATIONS: None. FINDINGS: IMPRESSION: 2010 [employer]- All Rights Reserved Abdomen/Pelvis CT 01/30/18 22:51 IMPRESSION: Limited study without IV or oral contrast. 7 mm right upper lobe nodule. Recommend follow-up as per Fleischner criteria. Punctate nonobstructing stones in both kidneys. No obstructive uropathy. Age indeterminate compression fracture of T12. Correlate for point tenderness in this region. Chest CT 01/30/18 22:51 IMPRESSION: Limited study without IV or oral contrast. 7 mm right upper lobe nodule. Recommend follow-up as per Fleischner criteria. Punctate nonobstructing stones in both kidneys. No obstructive uropathy. Age indeterminate compression fracture of T12. Correlate for point tenderness in this region. Renal Ultrasound 01/31/18 00:00 IMPRESSION: Possible punctate nonobstructing stones in both kidneys. Otherwise unremarkable study. Assessment & Plan - Diagnosis (1) Acute kidney injury Is this a current diagnosis for this admission?: Yes Plan: Pt clinically dehydrated. Pt has ANIA from being dehydrated plus acute rhabbdo could be from his falls plus medications. Continue with IV fluid hydration. Renal u/s negative for any obstructive uropathy. I expect him to make a complete recovery. (2) Acute hepatitis Is this a current diagnosis for this admission?: Yes Plan: Needs to be worked up. (3) Failure to thrive Qualifiers: Failure to thrive age range: in adult Qualified Code(s): R62.7 - Adult failure to thrive Is this a current diagnosis for this admission?: Yes Plan: Discuss that he is getting weaker and he needs somebody to be living with him or he needs to move into an assisted care facility for his own health benefits. (4) Hypertension Plan: Controlled.
--- NOTE | 2018-01-31 14:31 | PDOC PROGRESS REPORT ---
Subjective Progress Note for:: 01/31/18 Subjective:: The patient is actually resting quite comfortably. Multiple dressings on his upper extremities for his skin tears with obvious ecchymosis. He is not in any discomfort. Reason For Visit: ARF, RHABDOMYOLYSIS, FALLS, WEIGHT LOSS Physical Exam Vital Signs: Temp Pulse Resp BP Pulse Ox 97.9 F 86 18 124/68 100 01/31/18 11:26 01/31/18 11:26 01/31/18 11:26 01/31/18 11:26 01/31/18 11:26 Intake & Output 01/30/18 01/31/18 02/01/18 06:59 06:59 06:59 Intake Total 2120 237 Output Total 1275 225 Balance 845 12 Weight 59.2 kg General appearance: PRESENT: no acute distress, thin, well-developed Head exam: PRESENT: other - Bandage over her scalp laceration. Eye exam: PRESENT: conjunctiva pale. ABSENT: scleral icterus Ear exam: PRESENT: normal external ear exam Mouth exam: PRESENT: dry mucosa Neck exam: ABSENT: JVD, tenderness, thyromegaly Respiratory exam: PRESENT: clear to auscultation jamie, symmetrical. ABSENT: rales, rhonchi, wheezes Cardiovascular exam: PRESENT: +S1, +S2, other - By auscultation is in bigeminy. Pulses: PRESENT: normal radial pulses, normal dorsalis pedis pul GI/Abdominal exam: PRESENT: normal bowel sounds, soft. ABSENT: guarding, tenderness Rectal exam: PRESENT: deferred Extremities exam: ABSENT: calf tenderness, pedal edema Musculoskeletal exam: PRESENT: other - Decreased muscle mass Neurological exam: PRESENT: alert, awake, oriented to person, CN II-XII grossly intact Psychiatric exam: PRESENT: appropriate affect, normal mood Skin exam: PRESENT: other - Marked ecchymosis both upper arms as well as lower back. The back also has several excoriations that appear to be healing. I did not remove the dressing on his head laceration. Results Laboratory Results: 01/31/18 01/31/18 01/31/18 03:15 03:15 09:30 Creatine Kinase 185 H 154 CK-MB (CK-2) 4.33 Troponin I 0.068 01/31/18 09:30 Creatine Kinase CK-MB (CK-2) 3.51 Troponin I 0.070 Impressions: Chest X-Ray 01/30/18 22:01 IMPRESSION: No evidence of acute cardiopulmonary disease. NUMBER OF VIEWS: TECHNIQUE: LIMITATIONS: None. FINDINGS: IMPRESSION: 2010 [employer]- All Rights Reserved Abdomen/Pelvis CT 01/30/18 22:51 IMPRESSION: Limited study without IV or oral contrast. 7 mm right upper lobe nodule. Recommend follow-up as per Fleischner criteria. Punctate nonobstructing stones in both kidneys. No obstructive uropathy. Age indeterminate compression fracture of T12. Correlate for point tenderness in this region. Chest CT 01/30/18 22:51 IMPRESSION: Limited study without IV or oral contrast. 7 mm right upper lobe nodule. Recommend follow-up as per Fleischner criteria. Punctate nonobstructing stones in both kidneys. No obstructive uropathy. Age indeterminate compression fracture of T12. Correlate for point tenderness in this region. Renal Ultrasound 01/31/18 00:00 IMPRESSION: Possible punctate nonobstructing stones in both kidneys. Otherwise unremarkable study. Assessment & Plan - Diagnosis (1) Acute kidney injury Is this a current diagnosis for this admission?: Yes Plan: The patient presents with an elevated serum creatinine without cause other than a slightly elevated total creatinine kinase (greater than 200). He has had significant rhabdomyolysis in the past. He will be getting intravenous fluids and nephrology will consult. (2) Failure to thrive Qualifiers: Failure to thrive age range: in adult Qualified Code(s): R62.7 - Adult failure to thrive Is this a current diagnosis for this admission?: Yes Plan: Patient states that he has not eaten in 3 days. When asked why he said that he has been getting tests. He stated that he has not been having any falls and he has not been stuck in a chair or on the floor for an extended period. He is a poor historian with history of dementia. He is quite thin. Certainly the bruises are disconcerting. Multiple frequent falls could certainly explain the findings but without the patient being a good historian and it is hard to know. Discharge planning has been made aware and will see the patient so that we may develop a safe discharge. (3) Abrasion of scalp, initial encounter Is this a current diagnosis for this admission?: Yes Plan: The scalp did not require surgical intervention. We will continue to use conservative dressings. (4) Bruise of both arms Is this a current diagnosis for this admission?: Yes Plan: As noted above the patient has extensive bruising on his back, arms and sporadic lesions on his legs. His coagulation studies were normal. As noted above his creatinine kinase was elevated but not markedly elevated. His injury certainly could be the result of multiple and frequent falls. He is not a good historian discharge planning will be seeing the patient to further evaluate his current living situation. - Time Time Spent with patient: 25-34 minutes Medications reviewed and adjusted accordingly: Yes - Plan Summary Plan Summary: Of note, after the patient encounter the patient's nurse called me to report significant orthostatic hypotension. The patient is already on IV fluids and so we will hold his antihypertensive medications and continue to reassess.
[2018-01-31 17:05] LABS: CREATINE KINASE MB 3.33 ng/mL (<4.55); TROPONIN I 0.063 ng/mL
[2018-01-31] MEDS: ASPIRIN 81 MG TABLET, ENT COATED PO SCH (21:55)
[2018-01-31] MEDS ORDERED: TRAZODONE HCL 50 MG TABLET PO SCH (22:00)
[2018-02-01] MEDS: IPRATROPIUM/ALBUTEROL 0.5-2.5 MG/3 ML AMPUL NEB SCH ×3 (00:15→15:47)
[2018-02-01 05:09] LABS: HEMATOCRIT 36.7 % (37.9-51.0); HEMOGLOBIN 13.1 g/dL (13.5-17.0); MEAN CORPUSCULAR HEMOGLOBIN 35.1 pg (27.0-33.4); MEAN CORPUSCULAR HGB CONC 35.5 g/dL (32.0-36.0); MEAN CORPUSCULAR VOLUME 99 fl (80-97); PLATELET COUNT 303 10^3/uL (150-450); RED BLOOD COUNT 3.72 10^6/uL (4.35-5.55); RED CELL DISTRIBUTION WIDTH 13.9 % (11.5-14.0); WHITE BLOOD COUNT 10.8 10^3/uL (4.0-10.5)
[2018-02-01 05:34] LABS: ALANINE AMINOTRANSFERASE 475 U/L (21-72); ALBUMIN 3.7 g/dL (3.5-5.0); ALKALINE PHOSPHATASE 114 U/L (38-126); ANION GAP 14 (5-19); ASPARTATE AMINO TRANSFERASE 285 U/L (17-59); BILIRUBIN,DIRECT 0.8 mg/dL (0.0-0.4); BILIRUBIN,TOTAL 1.7 mg/dL (0.2-1.3); BLOOD UREA NITROGEN 41 mg/dL (7-20); CALCIUM 8.7 mg/dL (8.4-10.2); CARBON DIOXIDE 30 mmol/L (22-30); CHLORIDE 98 mmol/L (98-107); GLUCOSE 130 mg/dL (75-110); SODIUM 142.4 mmol/L (137-145); TOTAL PROTEIN 6.7 g/dL (6.3-8.2)
[2018-02-01 05:43] LABS: POTASSIUM 2.8 mmol/L (3.6-5.0)
[2018-02-01] MEDS: DILTIAZEM HCL 30 MG TABLET PO SCH (06:25)
[2018-02-01] MEDS: CLONIDINE HCL 0.1 MG TABLET PO SCH ×2 (06:25→19:34)
[2018-02-01] MEDS: HEPARIN SOD (PORCINE) 5,000 UNIT/ML 1 ML SYRINGE SUBCUT SCH ×3 (06:26→22:06)
[2018-02-01] MEDS ORDERED: POTASSIUM CHLORIDE 20 MEQ/50 ML RTU IV SCH (06:30)
[2018-02-01] MEDS ORDERED: POTASSIUM CHLORIDE 10 MEQ CAPSULE.ER PO ONE ×2 (08:00→12:00)
[2018-02-01 08:40] LABS: HEPATITIS A AB IGM Negative (Negative); HEPATITIS B CORE AB IGM Negative (Negative); HEPATITS B SURFACE ANTIGEN Negative (Negative)
[2018-02-01] MEDS: FOLIC ACID 1 MG TABLET PO SCH (09:11)
[2018-02-01] MEDS: DOCUSATE SODIUM 100 MG CAPSULE PO SCH ×2 (09:12→17:28)
[2018-02-01 17:19] LABS: HEPATITIS C VIRUS ANTIBODY <0.1 s/co ratio (0.0-0.9)
[2018-02-01] MEDS ORDERED: CLONIDINE HCL 0.1 MG TABLET PO SCH ×2 (22:00)
[2018-02-01] MEDS: ASPIRIN 81 MG TABLET, ENT COATED PO SCH (22:06)
[2018-02-02] MEDS: IPRATROPIUM/ALBUTEROL 0.5-2.5 MG/3 ML AMPUL NEB SCH ×3 (00:19→15:56)
[2018-02-02 04:52] LABS: ABSOLUTE BASOPHILS # (AUTO) 0.1 10^3/uL (0.0-0.2); ABSOLUTE MONOCYTES (AUTO) 0.9 10^3/uL (0.1-1.4); ABSOLUTE NEUT (AUTO) 10.2 10^3/uL (1.7-8.2); BASOPHILS % (AUTO) 0.5 % (0-2); EOSINOPHILS % (AUTO) 0.3 % (0-6); HEMATOCRIT 36.6 % (37.9-51.0); HEMOGLOBIN 12.6 g/dL (13.5-17.0); LYMPHOCYTES % (AUTO) 7.8 % (13-45); MEAN CORPUSCULAR HEMOGLOBIN 34.2 pg (27.0-33.4); MEAN CORPUSCULAR HGB CONC 34.5 g/dL (32.0-36.0); MEAN CORPUSCULAR VOLUME 99 fl (80-97); MONOCYTES % (AUTO) 7.6 % (3-13); PLATELET COUNT 293 10^3/uL (150-450); RED BLOOD COUNT 3.68 10^6/uL (4.35-5.55); RED CELL DISTRIBUTION WIDTH 13.9 % (11.5-14.0); SEGMENTED NEUTROPHILS % (AUTO) 83.8 % (42-78); TOTAL CELLS COUNTED % (AUTO) 100 %; WHITE BLOOD COUNT 12.2 10^3/uL (4.0-10.5)
[2018-02-02] MEDS: HEPARIN SOD (PORCINE) 5,000 UNIT/ML 1 ML SYRINGE SUBCUT SCH ×3 (05:11→21:33)
[2018-02-02 08:07] LABS: ALANINE AMINOTRANSFERASE 312 U/L (21-72); ALBUMIN 3.4 g/dL (3.5-5.0); ALKALINE PHOSPHATASE 105 U/L (38-126); ANION GAP 12 (5-19); ASPARTATE AMINO TRANSFERASE 117 U/L (17-59); BILIRUBIN,DIRECT 0.7 mg/dL (0.0-0.4); BILIRUBIN,TOTAL 1.5 mg/dL (0.2-1.3); BLOOD UREA NITROGEN 30 mg/dL (7-20); CALCIUM 8.6 mg/dL (8.4-10.2); CARBON DIOXIDE 28 mmol/L (22-30); CHLORIDE 100 mmol/L (98-107); GLUCOSE 134 mg/dL (75-110); POTASSIUM 3.2 mmol/L (3.6-5.0); SODIUM 139.8 mmol/L (137-145); TOTAL PROTEIN 6.5 g/dL (6.3-8.2)
[2018-02-02] MEDS ORDERED: POTASSIUM CHLORIDE 10 MEQ CAPSULE.ER PO ONE (09:00)
[2018-02-02] MEDS: MAGNESIUM SULFATE 1 GM/D5W 100 ML IV SCH ×2 (09:24→10:46)
[2018-02-02] MEDS: FOLIC ACID 1 MG TABLET PO SCH (09:24)
[2018-02-02] MEDS: DILTIAZEM HCL 120 MG CAP.SR.24H PO SCH (09:24)
[2018-02-02] MEDS: DOCUSATE SODIUM 100 MG CAPSULE PO SCH ×2 (09:25→17:10)
[2018-02-02] MEDS: NORMAL SALINE 1000 ML 1,000 ML IV PRN ×2 (09:26→22:56)
--- NOTE | 2018-02-02 12:06 | PDOC PROGRESS REPORT ---
Subjective Progress Note for:: 02/01/18 Subjective:: No complaint, knows name. Denies headache, no blurry vision. He is alert, oriented to name. No chest pain or shortness of breath. No fever or chills, no stiff neck or photophobia. Reason For Visit: ARF, RHABDOMYOLYSIS, FALLS, WEIGHT LOSS Physical Exam Vital Signs: Temp Pulse Resp BP Pulse Ox 97.6 F 91 18 129/67 H 94 02/01/18 11:54 02/01/18 11:54 02/01/18 11:54 02/01/18 11:54 02/01/18 11:54 Intake & Output 01/31/18 02/01/18 02/02/18 06:59 06:59 06:59 Intake Total 2120 2559 237 Output Total 1275 1175 300 Balance 845 1384 -63 Weight 59.2 kg 59.8 kg General appearance: PRESENT: no acute distress, thin, well-developed Head exam: PRESENT: other - Bandage over scalp laceration. Eye exam: PRESENT: conjunctiva pale. ABSENT: scleral icterus Ear exam: PRESENT: normal external ear exam Mouth exam: PRESENT: dry mucosa Neck exam: ABSENT: JVD, tenderness, thyromegaly Respiratory exam: PRESENT: clear to auscultation jamie, symmetrical. ABSENT: rales, rhonchi, wheezes Cardiovascular exam: PRESENT: +S1, +S2, other - By auscultation is in bigeminy. Pulses: PRESENT: normal radial pulses, normal dorsalis pedis pul GI/Abdominal exam: PRESENT: normal bowel sounds, soft. ABSENT: guarding, tenderness Rectal exam: PRESENT: deferred Extremities exam: ABSENT: calf tenderness, pedal edema Musculoskeletal exam: PRESENT: other - Decreased muscle mass Neurological exam: PRESENT: alert, awake, oriented to person, CN II-XII grossly intact Psychiatric exam: PRESENT: appropriate affect, normal mood Skin exam: PRESENT: other - Marked ecchymosis both upper arms as well as lower back. The back also has several excoriations that appear to be healing. Head laceration dressing clean, dry, and intact. Results Laboratory Results: 02/01/18 04:34 02/01/18 04:34 02/01/18 02/01/18 02/01/18 04:34 04:34 04:34 WBC 10.8 H RBC 3.72 L Hgb 13.1 L Hct 36.7 L MCV 99 H MCH 35.1 H MCHC 35.5 RDW 13.9 Plt Count 303 Sodium 142.4 Potassium 2.8 L* Chloride 98 Carbon Dioxide 30 Anion Gap 14 BUN 41 H Creatinine 1.67 H Est GFR ( Amer) 49 L Est GFR (Non-Af Amer) 40 L Glucose 130 H Calcium 8.7 Magnesium 1.5 L Total Bilirubin 1.7 H AST 285 H ALT 475 H Alkaline Phosphatase 114 Total Protein 6.7 Albumin 3.7 01/31/18 01/31/18 01/31/18 03:15 03:15 09:30 Creatine Kinase 185 H 154 CK-MB (CK-2) 4.33 Troponin I 0.068 01/31/18 01/31/18 01/31/18 09:30 16:15 16:15 Creatine Kinase 128 CK-MB (CK-2) 3.51 3.33 Troponin I 0.070 0.063 Impressions: Chest X-Ray 01/30/18 22:01 IMPRESSION: No evidence of acute cardiopulmonary disease. NUMBER OF VIEWS: TECHNIQUE: LIMITATIONS: None. FINDINGS: IMPRESSION: 2010 [employer]- All Rights Reserved Abdomen/Pelvis CT 01/30/18 22:51 IMPRESSION: Limited study without IV or oral contrast. 7 mm right upper lobe nodule. Recommend follow-up as per Fleischner criteria. Punctate nonobstructing stones in both kidneys. No obstructive uropathy. Age indeterminate compression fracture of T12. Correlate for point tenderness in this region. Chest CT 01/30/18 22:51 IMPRESSION: Limited study without IV or oral contrast. 7 mm right upper lobe nodule. Recommend follow-up as per Fleischner criteria. Punctate nonobstructing stones in both kidneys. No obstructive uropathy. Age indeterminate compression fracture of T12. Correlate for point tenderness in this region. Renal Ultrasound 01/31/18 00:00 IMPRESSION: Possible punctate nonobstructing stones in both kidneys. Otherwise unremarkable study. Assessment & Plan - Diagnosis (1) Acute kidney injury Is this a current diagnosis for this admission?: Yes (2) Bruise of both arms Is this a current diagnosis for this admission?: Yes (3) Failure to thrive Qualifiers: Failure to thrive age range: in adult Qualified Code(s): R62.7 - Adult failure to thrive Is this a current diagnosis for this admission?: Yes (4) Lung nodule Is this a current diagnosis for this admission?: Yes (5) Abrasion of scalp Qualifiers: Encounter type: subsequent encounter Qualified Code(s): S00.01XD - Abrasion of scalp, subsequent encounter Is this a current diagnosis for this admission?: Yes (6) Orthostatic hypotension Is this a current diagnosis for this admission?: Yes (7) Frequent falls Is this a current diagnosis for this admission?: Yes (8) Hypokalemia Is this a current diagnosis for this admission?: Yes - Plan Summary Plan Summary: Patient still with episodes of orthostatic hypotension. This may be because of recurrent falls. Patient is status post fluid bolus. Falls precautions. We will titrate clonidine to 0.4 mg twice daily--from 3 times daily. Afebrile, will attempt to titrate off. Also will change Cardizem from short-acting every 8 hours to long-acting 120 mg daily. PT/OT evaluation, patient likely will need senior living facility with rehab. Continue management otherwise. Acute kidney injury improving, follow-up CBC and Chem-7 in a.m. For hypokalemia, will replete K. Follow-up level in a.m. Check magnesium.
[2018-02-02] MEDS ORDERED: LORAZEPAM 1 MG TABLET PO PRN (12:18)
--- NOTE | 2018-02-02 12:18 | PDOC PROGRESS REPORT ---
Subjective Progress Note for:: 02/02/18 Subjective:: No complaint, knows name. Denies headache, no significant scalp pain, no blurry vision. He is alert, oriented to name. No chest pain or shortness of breath. No fever or chills, no stiff neck or photophobia. Daughter reports that patient is a significant amount of alcohol. He had stated he stopped drinking, but she went to his house and found several empty bottles of beer. Reason For Visit: ARF, RHABDOMYOLYSIS, FALLS, WEIGHT LOSS Physical Exam Vital Signs: Temp Pulse Resp BP Pulse Ox 98.3 F 114 H 19 139/92 H 98 02/02/18 11:03 02/02/18 11:03 02/02/18 11:03 02/02/18 11:03 02/02/18 11:03 Intake & Output 02/01/18 02/02/18 02/03/18 06:59 06:59 06:59 Intake Total 2559 903 517 Output Total 1175 525 125 Balance 1384 378 392 Weight 59.8 kg 60.5 kg General appearance: PRESENT: no acute distress, thin, well-developed Head exam: PRESENT: other - Bandage over scalp laceration. Eye exam: PRESENT: conjunctiva pale. ABSENT: scleral icterus Ear exam: PRESENT: normal external ear exam Mouth exam: PRESENT: dry mucosa Neck exam: ABSENT: JVD, tenderness, thyromegaly Respiratory exam: PRESENT: clear to auscultation jamie, symmetrical. ABSENT: rales, rhonchi, wheezes Cardiovascular exam: PRESENT: +S1, +S2, other - By auscultation is in bigeminy. Pulses: PRESENT: normal radial pulses, normal dorsalis pedis pul GI/Abdominal exam: PRESENT: normal bowel sounds, soft. ABSENT: guarding, tenderness Rectal exam: PRESENT: deferred Extremities exam: ABSENT: calf tenderness, pedal edema Musculoskeletal exam: PRESENT: other - Decreased muscle mass Neurological exam: PRESENT: alert, awake, oriented to person, CN II-XII grossly intact Psychiatric exam: PRESENT: appropriate affect, normal mood Skin exam: PRESENT: other - Marked ecchymosis both upper arms as well as lower back. The back also has several excoriations that appear to be healing. Head laceration dressing clean, dry, and intact. Results Laboratory Results: 02/02/18 04:29 02/02/18 04:29 02/02/18 02/02/18 04:29 04:29 WBC 12.2 H RBC 3.68 L Hgb 12.6 L Hct 36.6 L MCV 99 H MCH 34.2 H MCHC 34.5 RDW 13.9 Plt Count 293 Seg Neutrophils % 83.8 H Lymphocytes % 7.8 L Monocytes % 7.6 Eosinophils % 0.3 Basophils % 0.5 Absolute Neutrophils 10.2 H Absolute Lymphocytes 1.0 Absolute Monocytes 0.9 Absolute Eosinophils 0.0 Absolute Basophils 0.1 Sodium 139.8 Potassium 3.2 L Chloride 100 Carbon Dioxide 28 Anion Gap 12 BUN 30 H Creatinine 1.45 H Est GFR ( Amer) 57 L Est GFR (Non-Af Amer) 47 L Glucose 134 H Calcium 8.6 Total Bilirubin 1.5 H AST 117 H ALT 312 H Alkaline Phosphatase 105 Total Protein 6.5 Albumin 3.4 L 01/31/18 01/31/18 01/31/18 03:15 03:15 09:30 Creatine Kinase 185 H 154 CK-MB (CK-2) 4.33 Troponin I 0.068 01/31/18 01/31/18 01/31/18 09:30 16:15 16:15 Creatine Kinase 128 CK-MB (CK-2) 3.51 3.33 Troponin I 0.070 0.063 Impressions: Chest X-Ray 01/30/18 22:01 IMPRESSION: No evidence of acute cardiopulmonary disease. NUMBER OF VIEWS: TECHNIQUE: LIMITATIONS: None. FINDINGS: IMPRESSION: 2010 [employer]- All Rights Reserved Abdomen/Pelvis CT 01/30/18 22:51 IMPRESSION: Limited study without IV or oral contrast. 7 mm right upper lobe nodule. Recommend follow-up as per Fleischner criteria. Punctate nonobstructing stones in both kidneys. No obstructive uropathy. Age indeterminate compression fracture of T12. Correlate for point tenderness in this region. Chest CT 01/30/18 22:51 IMPRESSION: Limited study without IV or oral contrast. 7 mm right upper lobe nodule. Recommend follow-up as per Fleischner criteria. Punctate nonobstructing stones in both kidneys. No obstructive uropathy. Age indeterminate compression fracture of T12. Correlate for point tenderness in this region. Renal Ultrasound 01/31/18 00:00 IMPRESSION: Possible punctate nonobstructing stones in both kidneys. Otherwise unremarkable study. Assessment & Plan - Diagnosis (1) Acute kidney injury Is this a current diagnosis for this admission?: Yes (2) Bruise of both arms Is this a current diagnosis for this admission?: Yes (3) Failure to thrive Qualifiers: Failure to thrive age range: in adult Qualified Code(s): R62.7 - Adult failure to thrive Is this a current diagnosis for this admission?: Yes (4) Lung nodule Is this a current diagnosis for this admission?: Yes (5) Abrasion of scalp Qualifiers: Encounter type: subsequent encounter Qualified Code(s): S00.01XD - Abrasion of scalp, subsequent encounter Is this a current diagnosis for this admission?: Yes (6) Orthostatic hypotension Is this a current diagnosis for this admission?: Yes (7) Frequent falls Is this a current diagnosis for this admission?: Yes (8) Hypokalemia Is this a current diagnosis for this admission?: Yes - Plan Summary Plan Summary: Patient still with episodes of orthostatic hypotension. This may be because of recurrent falls. Patient is status post fluid bolus. Falls precautions. BP's doing okay with decreasing clonidine to 0.1 mg twice daily--will discontinue continue to monitor blood pressure. Continue Cardizem CD at 120 mg daily. PT/OT evaluation appreciated, recommended custodial facility with rehab. Care management to look into this. Acute kidney injury improving, but still elevated. Will treat with normal saline 100 mm/h for further hydration. Follow-up Chem-7 in a.m. For hypokalemia, will replete K with potassium chloride 40 M EQ every 4 hours x2 doses orally. Magnesium also low, will replete with magnesium sulfate 2 g IV x1. Follow-up potassium and magnesium levels in a.m. For alcohol abuse, patient currently not in withdrawal. Will treat with as needed Ativan if withdrawal symptoms.
[2018-02-02] MEDS: POTASSIUM CHLORIDE 20 MEQ/15 ML UDCUP PO SCH ×2 (12:29→16:26)
[2018-02-02] MEDS: ASPIRIN 81 MG TABLET, ENT COATED PO SCH (21:33)
[2018-02-03] MEDS: IPRATROPIUM/ALBUTEROL 0.5-2.5 MG/3 ML AMPUL NEB SCH ×4 (00:26→23:52)
[2018-02-03] MEDS: HEPARIN SOD (PORCINE) 5,000 UNIT/ML 1 ML SYRINGE SUBCUT SCH ×3 (06:04→22:45)
[2018-02-03 06:22] LABS: ABSOLUTE BASOPHILS # (AUTO) 0.1 10^3/uL (0.0-0.2); ABSOLUTE LYMPHOCYTES (AUTO) 1.4 10^3/uL (0.5-4.7); ABSOLUTE MONOCYTES (AUTO) 0.8 10^3/uL (0.1-1.4); ABSOLUTE NEUT (AUTO) 12.4 10^3/uL (1.7-8.2); BASOPHILS % (AUTO) 0.6 % (0-2); HEMATOCRIT 34.1 % (37.9-51.0); HEMOGLOBIN 11.7 g/dL (13.5-17.0); LYMPHOCYTES % (AUTO) 9.4 % (13-45); MEAN CORPUSCULAR HEMOGLOBIN 34.4 pg (27.0-33.4); MEAN CORPUSCULAR HGB CONC 34.3 g/dL (32.0-36.0); MEAN CORPUSCULAR VOLUME 100 fl (80-97); MONOCYTES % (AUTO) 5.7 % (3-13); PLATELET COUNT 276 10^3/uL (150-450); RED CELL DISTRIBUTION WIDTH 14.7 % (11.5-14.0); SEGMENTED NEUTROPHILS % (AUTO) 84.3 % (42-78); TOTAL CELLS COUNTED % (AUTO) 100 %; WHITE BLOOD COUNT 14.7 10^3/uL (4.0-10.5)
[2018-02-03 06:37] LABS: ALANINE AMINOTRANSFERASE 199 U/L (21-72); ALBUMIN 3.1 g/dL (3.5-5.0); ALKALINE PHOSPHATASE 102 U/L (38-126); ANION GAP 12 (5-19); ASPARTATE AMINO TRANSFERASE 48 U/L (17-59); BILIRUBIN,DIRECT 0.5 mg/dL (0.0-0.4); BILIRUBIN,TOTAL 1.4 mg/dL (0.2-1.3); BLOOD UREA NITROGEN 18 mg/dL (7-20); CALCIUM 8.1 mg/dL (8.4-10.2); CARBON DIOXIDE 23 mmol/L (22-30); CHLORIDE 104 mmol/L (98-107); GLUCOSE 112 mg/dL (75-110); POTASSIUM 3.7 mmol/L (3.6-5.0); SODIUM 139.2 mmol/L (137-145); TOTAL PROTEIN 5.9 g/dL (6.3-8.2)
[2018-02-03] MEDS: DILTIAZEM HCL 120 MG CAP.SR.24H PO SCH (09:48)
[2018-02-03] MEDS: FOLIC ACID 1 MG TABLET PO SCH (09:48)
[2018-02-03] MEDS: DOCUSATE SODIUM 100 MG CAPSULE PO SCH ×2 (09:49→17:42)
[2018-02-03] MEDS: NORMAL SALINE 1000 ML 1,000 ML IV PRN (09:54)
[2018-02-03 12:08] LABS: APPEARANCE,URINE CLEAR; BILIRUBIN,URINE NEGATIVE (NEGATIVE); COLOR,URINE YELLOW; GLUCOSE, URINE 150 mg/dL (NEGATIVE); KETONES,URINE NEGATIVE (NEGATIVE); LEUKOCYTE ESTERASE,URINE NEGATIVE (NEGATIVE); NITRITE,URINE NEGATIVE (NEGATIVE); PROTEIN,URINE NEGATIVE (NEGATIVE); URINE SPECIFIC GRAVITY 1.009
--- NOTE | 2018-02-03 13:17 | PDOC PROGRESS REPORT ---
Subjective Progress Note for:: 02/03/18 Subjective:: 77-year-old male with history of hypertension, CKD, alcoholism, presented with ANIA and recurrent falls, as well as multiple bruises as well as scalp wounds. Also found to orthostatic hypotension. No complaint today, knows name. Denies headache, no significant scalp pain, no blurry vision. He is alert, oriented to name. Reports urinary frequency. No chest pain or shortness of breath. No fever or chills, no stiff neck or photophobia. Daughter reported that patient used a significant amount of alcohol. He had told her he stopped drinking, but she went to his house and found several empty bottles of beer. Reason For Visit: ARF, RHABDOMYOLYSIS, FALLS, WEIGHT LOSS Physical Exam Vital Signs: Temp Pulse Resp BP Pulse Ox 97.3 F 44 L 20 145/80 H 94 02/03/18 07:17 02/03/18 07:17 02/03/18 07:17 02/03/18 07:17 02/03/18 07:17 Intake & Output 02/02/18 02/03/18 02/04/18 06:59 06:59 06:59 Intake Total 903 2201 1000 Output Total 525 425 300 Balance 378 1776 700 Weight 60.5 kg 63.2 kg General appearance: PRESENT: no acute distress, thin, well-developed Head exam: PRESENT: other - Bandage over scalp laceration. Mouth exam: PRESENT: moist oral mucosa Neck exam: ABSENT: JVD, tenderness, thyromegaly Respiratory exam: PRESENT: clear to auscultation jamie, symmetrical. ABSENT: rales, rhonchi, wheezes Cardiovascular exam: PRESENT: +S1, +S2, other - By auscultation is in bigeminy. Pulses: PRESENT: normal radial pulses, normal dorsalis pedis pul GI/Abdominal exam: PRESENT: normal bowel sounds, soft. ABSENT: guarding, tenderness Rectal exam: PRESENT: deferred Extremities exam: ABSENT: calf tenderness, pedal edema Musculoskeletal exam: PRESENT: other - Decreased muscle mass Neurological exam: PRESENT: alert, awake, oriented to person, CN II-XII grossly intact Psychiatric exam: PRESENT: appropriate affect, normal mood Skin exam: PRESENT: other - Marked ecchymosis both upper arms as well as lower back. The back also has several excoriations that appear to be healing. Head laceration dressing clean, dry, and intact. Results Laboratory Results: 02/03/18 05:59 02/03/18 05:59 02/03/18 02/03/18 02/03/18 05:59 05:59 11:45 WBC 14.7 H RBC 3.40 L Hgb 11.7 L Hct 34.1 L MCV 100 H MCH 34.4 H MCHC 34.3 RDW 14.7 H Plt Count 276 Seg Neutrophils % 84.3 H Lymphocytes % 9.4 L Monocytes % 5.7 Eosinophils % 0.0 Basophils % 0.6 Absolute Neutrophils 12.4 H Absolute Lymphocytes 1.4 Absolute Monocytes 0.8 Absolute Eosinophils 0.0 Absolute Basophils 0.1 Sodium 139.2 Potassium 3.7 Chloride 104 Carbon Dioxide 23 Anion Gap 12 BUN 18 Creatinine 1.17 Est GFR ( Amer) > 60 Est GFR (Non-Af Amer) > 60 Glucose 112 H Calcium 8.1 L Total Bilirubin 1.4 H AST 48 ALT 199 H Alkaline Phosphatase 102 Total Protein 5.9 L Albumin 3.1 L Urine Color YELLOW Urine Appearance CLEAR Urine pH 8.0 Ur Specific [place] 1.009 Urine Protein NEGATIVE Urine Glucose (UA) 150 H Urine Ketones NEGATIVE Urine Blood NEGATIVE Urine Nitrite NEGATIVE Ur Leukocyte Esterase NEGATIVE Urine WBC (Auto) 0 Urine RBC (Auto) 1 01/31/18 01/31/18 01/31/18 03:15 03:15 09:30 Creatine Kinase 185 H 154 CK-MB (CK-2) 4.33 Troponin I 0.068 01/31/18 01/31/18 01/31/18 09:30 16:15 16:15 Creatine Kinase 128 CK-MB (CK-2) 3.51 3.33 Troponin I 0.070 0.063 Impressions: Chest X-Ray 01/30/18 22:01 IMPRESSION: No evidence of acute cardiopulmonary disease. NUMBER OF VIEWS: TECHNIQUE: LIMITATIONS: None. FINDINGS: IMPRESSION: 2010 [employer]- All Rights Reserved Abdomen/Pelvis CT 01/30/18 22:51 IMPRESSION: Limited study without IV or oral contrast. 7 mm right upper lobe nodule. Recommend follow-up as per Fleischner criteria. Punctate nonobstructing stones in both kidneys. No obstructive uropathy. Age indeterminate compression fracture of T12. Correlate for point tenderness in this region. Chest CT 01/30/18 22:51 IMPRESSION: Limited study without IV or oral contrast. 7 mm right upper lobe nodule. Recommend follow-up as per Fleischner criteria. Punctate nonobstructing stones in both kidneys. No obstructive uropathy. Age indeterminate compression fracture of T12. Correlate for point tenderness in this region. Renal Ultrasound 01/31/18 00:00 IMPRESSION: Possible punctate nonobstructing stones in both kidneys. Otherwise unremarkable study. Assessment & Plan - Diagnosis (1) Acute kidney injury Is this a current diagnosis for this admission?: Yes (2) Bruise of both arms Is this a current diagnosis for this admission?: Yes (3) Failure to thrive Qualifiers: Failure to thrive age range: in adult Qualified Code(s): R62.7 - Adult failure to thrive Is this a current diagnosis for this admission?: Yes (4) Lung nodule Is this a current diagnosis for this admission?: Yes (5) Abrasion of scalp Qualifiers: Encounter type: subsequent encounter Qualified Code(s): S00.01XD - Abrasion of scalp, subsequent encounter Is this a current diagnosis for this admission?: Yes (6) Orthostatic hypotension Is this a current diagnosis for this admission?: Yes (7) Frequent falls Is this a current diagnosis for this admission?: Yes (8) Hypokalemia Is this a current diagnosis for this admission?: Yes - Plan Summary Plan Summary: Orthostatic hypotension better. This may be cause of recurrent falls. Patient is status post fluid bolus and still on IV fluids. We will continue with gentle hydration. Falls precautions. Also, patient has been taken off clonidine and started on Cardizem CD at 120 mg daily. Can increase Cardizem dose if blood pressures running high. PT/OT evaluated patient, recommended snf facility with rehab. Care management informed on working on this. Acute kidney injury continues to improve. Will continue with normal saline 100 mm/h for further hydration. Can probably discontinue IV fluids by tomorrow. Hypokalemia has been repleted and better today. Magnesium was also repleted. Follow-up potassium and magnesium levels in a.m. For alcohol abuse, patient currently not in withdrawal. Will continue with as needed Ativan. Patient with leukocytosis. He has scattered bruising and several bruising on his arms. These do not look overtly infected, but cannot rule out abscess of leukocytosis. Will treat patient with doxycycline 100 mg twice daily. Urine analysis negative for infectious source.
[2018-02-03] MEDS: DOXYCYCLINE HYCLATE 100 MG TABLET PO SCH ×2 (15:01→22:44)
--- NOTE | 2018-02-03 16:26 | PDOC PROGRESS REPORT ---
Subjective Progress Note for:: 02/03/18 Subjective:: Patient was seen this morning. At the time he was laying in his bed. He had no complaints. He said that his body was no longer sore. He denies chest pain,SOB, n/v/d/c. Urine out put is good with normal looking urine. He denies seeing any blood in his stool or dark tarry stools despite his hemoglobin dropping a little bit every day. Reason For Visit: ARF, RHABDOMYOLYSIS, FALLS, WEIGHT LOSS Physical Exam Vital Signs: Temp Pulse Resp BP Pulse Ox 97.3 F 110 H 16 124/79 96 02/03/18 07:17 02/03/18 15:43 02/03/18 15:43 02/03/18 15:16 02/03/18 15:43 Intake & Output 02/02/18 02/03/18 02/04/18 06:59 06:59 06:59 Intake Total 903 2201 1237 Output Total 525 425 300 Balance 378 1776 937 Weight 60.5 kg 63.2 kg General appearance: PRESENT: no acute distress, well-developed, well-nourished Mouth exam: PRESENT: moist, neck supple Neck exam: PRESENT: full ROM. ABSENT: JVD Respiratory exam: PRESENT: clear to auscultation jamie. ABSENT: crackles, rales, rhonchi, wheezes Cardiovascular exam: PRESENT: +S1, +S2, systolic murmur GI/Abdominal exam: PRESENT: soft. ABSENT: normal bowel sounds, organomegaly, tenderness Extremities exam: ABSENT: pedal edema, tenderness, +1 edema, +2 edema Musculoskeletal exam: PRESENT: normal inspection. ABSENT: tenderness Neurological exam: PRESENT: alert, awake, oriented to person, oriented to place , oriented to time, oriented to situation Skin exam: PRESENT: dry, erythema, skin tears, warm. ABSENT: normal color - - bruises noted Results Laboratory Results: 02/03/18 05:59 02/03/18 05:59 02/03/18 02/03/18 02/03/18 05:59 05:59 11:45 WBC 14.7 H RBC 3.40 L Hgb 11.7 L Hct 34.1 L MCV 100 H MCH 34.4 H MCHC 34.3 RDW 14.7 H Plt Count 276 Seg Neutrophils % 84.3 H Lymphocytes % 9.4 L Monocytes % 5.7 Eosinophils % 0.0 Basophils % 0.6 Absolute Neutrophils 12.4 H Absolute Lymphocytes 1.4 Absolute Monocytes 0.8 Absolute Eosinophils 0.0 Absolute Basophils 0.1 Sodium 139.2 Potassium 3.7 Chloride 104 Carbon Dioxide 23 Anion Gap 12 BUN 18 Creatinine 1.17 Est GFR ( Amer) > 60 Est GFR (Non-Af Amer) > 60 Glucose 112 H Calcium 8.1 L Total Bilirubin 1.4 H AST 48 ALT 199 H Alkaline Phosphatase 102 Total Protein 5.9 L Albumin 3.1 L Urine Color YELLOW Urine Appearance CLEAR Urine pH 8.0 Ur Specific [place] 1.009 Urine Protein NEGATIVE Urine Glucose (UA) 150 H Urine Ketones NEGATIVE Urine Blood NEGATIVE Urine Nitrite NEGATIVE Ur Leukocyte Esterase NEGATIVE Urine WBC (Auto) 0 Urine RBC (Auto) 1 01/31/18 01/31/18 01/31/18 03:15 03:15 09:30 Creatine Kinase 185 H 154 CK-MB (CK-2) 4.33 Troponin I 0.068 01/31/18 01/31/18 01/31/18 09:30 16:15 16:15 Creatine Kinase 128 CK-MB (CK-2) 3.51 3.33 Troponin I 0.070 0.063 Impressions: Chest X-Ray 01/30/18 22:01 IMPRESSION: No evidence of acute cardiopulmonary disease. NUMBER OF VIEWS: TECHNIQUE: LIMITATIONS: None. FINDINGS: IMPRESSION: 2010 [employer]- All Rights Reserved Abdomen/Pelvis CT 01/30/18 22:51 IMPRESSION: Limited study without IV or oral contrast. 7 mm right upper lobe nodule. Recommend follow-up as per Fleischner criteria. Punctate nonobstructing stones in both kidneys. No obstructive uropathy. Age indeterminate compression fracture of T12. Correlate for point tenderness in this region. Chest CT 01/30/18 22:51 IMPRESSION: Limited study without IV or oral contrast. 7 mm right upper lobe nodule. Recommend follow-up as per Fleischner criteria. Punctate nonobstructing stones in both kidneys. No obstructive uropathy. Age indeterminate compression fracture of T12. Correlate for point tenderness in this region. Renal Ultrasound 01/31/18 00:00 IMPRESSION: Possible punctate nonobstructing stones in both kidneys. Otherwise unremarkable study. Assessment & Plan - Diagnosis (1) Acute kidney injury Is this a current diagnosis for this admission?: Yes Plan: resolved, looks to be at baseline. At this time he is stable for discharge from nephrology standpoint. Recommend follow with Dr. Moreno in 10 to 14 days. (2) Hypokalemia Is this a current diagnosis for this admission?: Yes Plan: currently stable (3) Acute hepatitis Is this a current diagnosis for this admission?: Yes Plan: needs further work up (4) Hypertension Plan: currently controlled (5) Anemia Plan: will look to begin work up tomorrow if he remains in the hospital.
[2018-02-03] MEDS: ASPIRIN 81 MG TABLET, ENT COATED PO SCH (22:44)
[2018-02-04] MEDS ORDERED: ACETAMINOPHEN 325 MG TABLET PO PRN (03:03)
[2018-02-04] MEDS: HEPARIN SOD (PORCINE) 5,000 UNIT/ML 1 ML SYRINGE SUBCUT SCH ×2 (05:56→13:38)
[2018-02-04 06:14] LABS: ABSOLUTE BASOPHILS # (AUTO) 0.1 10^3/uL (0.0-0.2); ABSOLUTE LYMPHOCYTES (AUTO) 1.3 10^3/uL (0.5-4.7); ABSOLUTE MONOCYTES (AUTO) 0.7 10^3/uL (0.1-1.4); ABSOLUTE NEUT (AUTO) 8.2 10^3/uL (1.7-8.2); ABSOLUTE RETICS # 0.077 10^6/uL (0.028-0.122); BASOPHILS % (AUTO) 0.5 % (0-2); EOSINOPHILS % (AUTO) 0.5 % (0-6); HEMATOCRIT 38.9 % (37.9-51.0); HEMOGLOBIN 13.3 g/dL (13.5-17.0); LYMPHOCYTES % (AUTO) 12.7 % (13-45); MEAN CORPUSCULAR HEMOGLOBIN 34.3 pg (27.0-33.4); MEAN CORPUSCULAR HGB CONC 34.3 g/dL (32.0-36.0); MEAN CORPUSCULAR VOLUME 100 fl (80-97); MONOCYTES % (AUTO) 6.7 % (3-13); PLATELET COUNT 288 10^3/uL (150-450); RED BLOOD COUNT 3.89 10^6/uL (4.35-5.55); RED CELL DISTRIBUTION WIDTH 14.5 % (11.5-14.0); RETICULOCYTE COUNT (AUTO) 1.98 % (0.66-2.85); SEGMENTED NEUTROPHILS % (AUTO) 79.6 % (42-78); TOTAL CELLS COUNTED % (AUTO) 100 %; WHITE BLOOD COUNT 10.4 10^3/uL (4.0-10.5)
[2018-02-04 06:24] LABS: ANION GAP 15 (5-19); BLOOD UREA NITROGEN 15 mg/dL (7-20); CALCIUM 8.4 mg/dL (8.4-10.2); CARBON DIOXIDE 23 mmol/L (22-30); CHLORIDE 103 mmol/L (98-107); GLUCOSE 99 mg/dL (75-110); IRON(TIBC) 33.6 ug/dL (49-181); POTASSIUM 3.4 mmol/L (3.6-5.0); SODIUM 140.8 mmol/L (137-145)
[2018-02-04] MEDS: FOLIC ACID 1 MG TABLET PO SCH (08:17)
[2018-02-04] MEDS: IPRATROPIUM/ALBUTEROL 0.5-2.5 MG/3 ML AMPUL NEB SCH ×2 (09:07→16:03)
[2018-02-04] MEDS: MAGNESIUM SULFATE 1 GM/D5W 100 ML IV SCH ×2 (09:48→11:00)
[2018-02-04] MEDS: DOXYCYCLINE HYCLATE 100 MG TABLET PO SCH (09:49)
[2018-02-04] MEDS: DOCUSATE SODIUM 100 MG CAPSULE PO SCH ×2 (09:49→18:25)
[2018-02-04] MEDS ORDERED: POTASSIUM CHLORIDE 10 MEQ CAPSULE.ER PO SCH (10:00)
[2018-02-04] MEDS ORDERED: METOPROLOL SUCCINATE 50 MG TAB.SR.24H PO SCH (10:00)
[2018-02-04] MEDS ORDERED: FERROUS SULFATE 325 MG TABLET PO SCH (12:00)
--- NOTE | 2018-02-04 14:04 | PDOC TRANSFER SUMMARY ---
General - Admit/Disc Date/PCP Admission Date/Primary Care Provider: 01/31/18 00:24 Noam MURRY MD Discharge Date: 02/04/18 - Discharge Diagnosis (1) Acute kidney injury Is this a current diagnosis for this admission?: Yes Summary: Patient's initial creatinine was 1.67 and it has gradually fallen to 0.99 over his hospital course with IV fluid rehydration and elimination of his diuretic therapy from his prehospitalization course. (2) Hypomagnesemia Is this a current diagnosis for this admission?: Yes Summary: Patient's initial magnesium was 1.5 and it subsequently dropped to 1.1 prior to being replaced with magnesium sulfate 2 g IV x1 and starting an oral regimen with Mag-Ox 400 mg p.o. daily. (3) Hypokalemia Is this a current diagnosis for this admission?: Yes Summary: Patient initially had a significant hypokalemia of 2.8 this was treated with appropriate intravenous potassium repletion. He continued to have improving potassium until prior to his discharge when his level dropped to 3.4. He was subsequently started on an oral potassium supplement utilizing K-Dur 20 mEq p.o. daily. (4) Elevated transaminase measurement Is this a current diagnosis for this admission?: Yes Summary: The patient's initial AST and ALT measurements were significantly elevated but with hydration his AST has dropped to normal and his ALT has dropped more than 50% from its original level though it remains moderately elevated. Further assessment of his hepatic functions in 1-2 weeks would be appropriate. - Additional Information Resuscitation Status: Full Code Discharge Diet: Cardiac Discharge Activity: Activity As Tolerated Prescriptions: Magnesium Oxide [Magnesium] 400 mg PO DAILY 30 Days #30 capsule Home Medications: Aspirin [Aspirin EC] 81 mg PO QHS 05/10/17 Atorvastatin Calcium 20 mg PO QHS 05/10/17 Folic Acid 1 mg PO QAM 05/10/17 Acetaminophen [Tylenol 325 mg Tablet] 650 mg PO Q4HP PRN tablet 02/04/18 Docusate Sodium [Colace 100 mg Capsule] 100 mg PO BID capsule 02/04/18 Doxycycline Hyclate [Vibramycin 100 mg Tablet] 100 mg PO Q12 tablet 02/04/18 Ferrous Sulfate [Feosol 325 mg Tablet] 325 mg PO WLUNCH tablet 02/04/18 Magnesium Oxide [Magnesium] 400 mg PO DAILY 30 Days #30 capsule 02/04/18 Metoprolol Succinate [Toprol Xl 50 mg Tab.sr] 50 mg PO DAILY tab.sr.24h Potassium Chloride [Klor-Con 10 Meq Capsule ER] 20 meq PO DAILY capsule.er History of Present Illness Admission Date/PCP: 01/31/18 00:24 Noam MURRY MD Patient complains of: Frequent falls History of Present Illness: SOPHIE PEREZ is a 77 year old male with the history of several falls to the floor after losing his balance with increasing frequency over the last 2 weeks. He is a very vague historian and cannot recall the symptoms before or after his fall. He denies change in medications, urinary frequency, dizziness, palpitations, chest pain, headache nausea or vomiting. He seemed hesitant/ confused about the events, but denied abuse or feeling unsafe at home alone. In the emergency room he was found to have ecchymoses of the back and arms with several superficial skin tears of the scalp and forearms bilaterally. His laboratory values showed an elevation of his hepatic transaminases and his renal functions suggesting dehydration. He admitted having similar symptoms in the past and felt like he needed to go back to the [facility] facility/ rehab for a month or so to get himself back into shape. Hospital Course Hospital Course: Body was treated with IV fluids and also had physical therapy and had his prehospital medications reduced significantly. He responded well to therapy with his serum creatinine dropping to near normal levels prior to discharge. Patient was also initially noted to be hypokalemic and this was treated with potassium supplements as required. Patient will be discharged with potassium chloride 20 mEq p.o. daily. He was also noted to be hypomagnesemic and was eventually treated with magnesium sulfate 2 g IV x1 and placed on an oral magnesium supplement Mag-Ox 400 mg p.o. daily. His hepatic transaminases were initially elevated but have substantially decreased over his hospital course with normalization of 1 and near normalization of the other. Because of his excellent progress it was felt that he was ready for discharge to a [facility] facility and appropriate arrangements have been made for him to be transferred to a [facility] facility of his family's choice in the [facility]. Physical Exam Vital Signs: Temp Pulse Resp BP Pulse Ox 97.6 F 81 16 152/92 H 99 02/04/18 12:26 02/04/18 12:26 02/04/18 12:26 02/04/18 12:26 02/04/18 12:26 Intake & Output 02/02/18 02/03/18 02/04/18 23:59 23:59 23:59 Intake Total 2642 3059 537 Output Total 592 432 5349 Balance 2362 8779 -9100 Weight 60.5 kg 63.2 kg 61.1 kg General appearance: PRESENT: no acute distress, cooperative Head exam: PRESENT: normocephalic, other - Multiple superficial ecchymoses and abrasions/skin tears are noted on the face and scalp. Eye exam: PRESENT: conjunctiva pink, EOMI. ABSENT: nystagmus Ear exam: PRESENT: normal external ear exam Mouth exam: PRESENT: moist - Mucosa noted, neck supple Respiratory exam: PRESENT: clear to auscultation jamie, symmetrical, unlabored Cardiovascular exam: PRESENT: RRR. ABSENT: clicks, diastolic murmur, gallop, rubs, systolic murmur Vascular exam: PRESENT: normal capillary refill GI/Abdominal exam: PRESENT: normal bowel sounds, soft Rectal exam: PRESENT: deferred Extremities exam: ABSENT: joint swelling, pedal edema Musculoskeletal exam: PRESENT: ambulatory - With a walker. ABSENT: deformity, dislocation Neurological exam: PRESENT: alert, oriented to person, oriented to place, oriented to time, oriented to situation, CN II-XII grossly intact. ABSENT: motor sensory deficit Psychiatric exam: PRESENT: appropriate affect, normal mood Skin exam: ABSENT: jaundice, rash, urticaria Results Laboratory Results: 02/04/18 05:29 02/04/18 05:29 02/04/18 02/04/18 05:29 05:29 WBC 10.4 RBC 3.89 L Hgb 13.3 L Hct 38.9 MCV 100 H MCH 34.3 H MCHC 34.3 RDW 14.5 H Plt Count 288 Seg Neutrophils % 79.6 H Lymphocytes % 12.7 L Monocytes % 6.7 Eosinophils % 0.5 Basophils % 0.5 Absolute Neutrophils 8.2 Absolute Lymphocytes 1.3 Absolute Monocytes 0.7 Absolute Eosinophils 0.0 Absolute Basophils 0.1 Retic Count (auto) 1.98 Absolute Retic 0.077 Sodium 140.8 Potassium 3.4 L Chloride 103 Carbon Dioxide 23 Anion Gap 15 BUN 15 Creatinine 0.99 Est GFR ( Amer) > 60 Est GFR (Non-Af Amer) > 60 Glucose 99 Calcium 8.4 Magnesium 1.1 L* Iron 33.6 L TIBC 219 L % Saturation 15 Ferritin 270.00 Vitamin B12 907.0 Folate 17.50 01/31/18 01/31/18 01/31/18 03:15 03:15 09:30 Creatine Kinase 185 H 154 CK-MB (CK-2) 4.33 Troponin I 0.068 01/31/18 01/31/18 01/31/18 09:30 16:15 16:15 Creatine Kinase 128 CK-MB (CK-2) 3.51 3.33 Troponin I 0.070 0.063 Impressions: Chest X-Ray 01/30/18 22:01 IMPRESSION: No evidence of acute cardiopulmonary disease. NUMBER OF VIEWS: TECHNIQUE: LIMITATIONS: None. FINDINGS: IMPRESSION: 2010 [employer]- All Rights Reserved Abdomen/Pelvis CT 01/30/18 22:51 IMPRESSION: Limited study without IV or oral contrast. 7 mm right upper lobe nodule. Recommend follow-up as per Fleischner criteria. Punctate nonobstructing stones in both kidneys. No obstructive uropathy. Age indeterminate compression fracture of T12. Correlate for point tenderness in this region. Chest CT 01/30/18 22:51 IMPRESSION: Limited study without IV or oral contrast. 7 mm right upper lobe nodule. Recommend follow-up as per Fleischner criteria. Punctate nonobstructing stones in both kidneys. No obstructive uropathy. Age indeterminate compression fracture of T12. Correlate for point tenderness in this region. Renal Ultrasound 01/31/18 00:00 IMPRESSION: Possible punctate nonobstructing stones in both kidneys. Otherwise unremarkable study. Transfer Plan - Disposition Transfer Plan: Transfer to [facility] a [facility] facility in the [facility] area chosen by the patient and his family. - Time Spent with Patient Time spent with patient: Greater than 30 Minutes Qualifiers - * PATIENT BEING DISCHARGED WITH ANY OF THE FOLLOWING DIAGNOSIS: No Plan Discharge Plan: Discharged to the [facility] in improved and stable condition. Time Spent: Greater than 30 Minutes
[2018-02-04 17:25] VITALS: BP 120/70
--- NOTE | 2018-02-05 17:38 | XCELERA REPORT ---
[address] [address] Transthoracic Echocardiogram Report Name: SOPHIE PEREZ Age: 77 yrs Gender: Male : 1940 Patient Status: Inpatient Patient Location: [address] [place] [address] Study Date: 02/04/2018 05:33 PM Height: 72 in Weight: 134 lb BSA: 1.8 m2 Procedure: A two-dimensional transthoracic echocardiogram with color flow Doppler was performed. Study Quality: Technically suboptimal. The study was technically difficult with many images being suboptimal in quality. Reason For Study: Orthostatic hypotension History: Orthostatic hypotension. Ordering Physician: RILEY COMBS Performed By: Valerie Avila Interpretation Summary The left ventricle is normal in size. There is normal left ventricular wall thickness. No True apical 2 chamber views obtained.Hence cannot comment on the apical anterior , the basal anterior, the basal inferior and apical inferior dawson.The mid anterior , the mid inferior and the rest of the LV dawson contract normally. .Normal LVEF is normal at 60% in the limited views. There is no thrombus. The left atrial size is normal. There is no evidence of mitral valve prolapse. There is no vegetation seen on the mitral valve. There is no mitral valve stenosis. There is a trace to mild amount of mitral regurgitation There is no aortic valve stenosis There is no LVOT obstruction. No aortic regurgitation is present. There is no tricuspid stenosis. There is a trace to mild amount of tricuspid regurgitation Early mild non significant pulmonary hypertensio.RVSP is only 32 mm of Hg , with RA mean of 10. There is no pericardial effusion. MMode/2D Measurements & Calculations RVDd: 2.2 cm LVIDd: 4.4 cm FS: 31.2 % Ao root diam: 3.2 cm IVSd: 1.1 cm LVIDs: 3.0 cm EDV(Teich): 86.4 ml Ao root area: 7.8 cm2 LVPWd: 0.98 cm ESV(Teich): 35.3 ml LA dimension: 2.5 cm EF(Teich): 59.2 % Doppler Measurements & Calculations MV E max corina: MV P1/2t max corina: Ao V2 max: LV V1 max P.4 cm/sec 69.8 cm/sec 99.9 cm/sec 2.3 mmHg MV A max corina: MV P1/2t: 67.5 msec Ao max PG: LV V1 max: 84.4 cm/sec MVA(P1/2t): 3.3 cm2 4.0 mmHg 76.3 cm/sec MV E/A: 0.58 MV dec slope: 302.9 cm/sec2 MV dec time: 0.26 sec TV V2 max: PA V2 max: TR max corina: MV P1/2t-pr_phl: 80.7 cm/sec 77.6 cm/sec 233.5 cm/sec 67.5 msec TV max PG: PA max P.4 mmHg TR max P.6 mmHg 21.8 mmHg Left Ventricle The left ventricle is normal in size. There is normal left ventricular wall thickness. No True apical 2 chamber views obtained.Hence cannot comment on the apical anterior , the basal anterior, the basal inferior and apical inferior dawson.The mid anterior , the mid inferior and the rest of the LV dawson contract normally. .Normal LVEF is normal at 60% in the limited views. Doppler measurements suggest impaired left ventricular relaxation, which is associated with grade I/IV or mild diastolic dysfunction. There is no thrombus. Right Ventricle The right ventricle is not well visualized secondary to technical limitations. Atria Right atrium not well visualized secondary to technical limitations. The left atrial size is normal. Mitral Valve There is no evidence of mitral valve prolapse. There is no vegetation seen on the mitral valve. There is no mitral valve stenosis. There is a trace to mild amount of mitral regurgitation. Aortic Valve There is no aortic valvular vegetation. There is no aortic valve stenosis. There is no LVOT obstruction. No aortic regurgitation is present. Tricuspid Valve There is no tricuspid stenosis. There is a trace to mild amount of tricuspid regurgitation. Early mild non significant pulmonary hypertensio.RVSP is only 32 mm of Hg , with RA mean of 10. Pulmonic Valve There is no pulmonic valvular stenosis. There is no pulmonic valvular regurgitation. Great Vessels The aortic root is not well visualized. Effusions There is no pericardial effusion. : RILEY COMBS > Nelida Tim
== END 2018-02-04 20:10 | disposition other institution (70) | DRG 683 ==
LOC: ER 21:02 → EH 01-31 00:24 → 3S 01-31 02:32
PROVIDERS: ADMIT Internal Medicine; ATTEND Internal Medicine
PROC: 3E0F73Z Introduction of Anti-inflammatory into Respiratory Tract, Via Natural or Artificial Opening (ICD-10-PCS; principal; 2018-01-31)
DX: N17.9 Acute kidney failure, unspecified (principal); B17.9 Acute viral hepatitis, unspecified; E83.42 Hypomagnesemia; E87.6 Hypokalemia; N20.0 Calculus of kidney; I13.10 Hypertensive heart and chronic kidney disease without heart failure, with stage 1 through stage 4 chronic kidney disease, or unspecified chronic kidney disease; N18.2 Chronic kidney disease, stage 2 (mild); I25.10 Atherosclerotic heart disease of native coronary artery without angina pectoris; E78.00 Pure hypercholesterolemia, unspecified; J44.9 Chronic obstructive pulmonary disease, unspecified; R91.1 Solitary pulmonary nodule; M19.90 Unspecified osteoarthritis, unspecified site; F17.210 Nicotine dependence, cigarettes, uncomplicated; R62.7 Adult failure to thrive; E86.0 Dehydration; T79.6XXA Traumatic ischemia of muscle, initial encounter; W19.XXXA Unspecified fall, initial encounter; T50.905A Adverse effect of unspecified drugs, medicaments and biological substances, initial encounter; I50.9 Heart failure, unspecified; S50.12XA Contusion of left forearm, initial encounter; S50.11XA Contusion of right forearm, initial encounter; I95.1 Orthostatic hypotension; S00.01XA Abrasion of scalp, initial encounter; D63.1 Anemia in chronic kidney disease; Z79.899 Other long term (current) drug therapy; Z60.2 Problems related to living alone; Z91.81 History of falling; Z82.49 Family history of ischemic heart disease and other diseases of the circulatory system; Z79.82 Long term (current) use of aspirin
CPT/HCPCS: 36415; 71045; 71250; 74176; 76770; 80048; 80053; 80074; 80307; 81001; 82550; 82553; 82607; 82728; 82746; 83540; 83550; 83690; 83735; 84100; 84443; 84484; 85025; 85027; 85045; 85610; 93005; 93010; 93306; 96360; 99285; G8978-GP; G8979-GP; J1644; J3475; J7030; J7620